=== PATIENT | female | born 1940 | race Caucasian/White ===

== ENCOUNTER → 2017-01-30 | Outpatient (CLI) | payer MEDICARE ==
--- NOTE | 2017-01-30 14:49 | CT ---
EXAMINATION TYPE: CT brain wo con DATE OF EXAM: 01/30/2017 2:39 PM COMPARISON: NONE HISTORY: Headaches CT DLP: 1096.[address] of the brain was performed. The ventricles, basal cisterns and sulci overlying the cerebral convexities demonstrate mild enlargem ent. There is no evidence for intracranial hemorrhage or sulcal effacement. There is decreased attenuation about the periventricular white matter and deep white matter of both c erebral hemispheres, compatible with chronic small vessel ischemia. Differential diagnosis does inclu de demyelination. No mass effects are seen.No midline shift. Osseous calvarium is intact. If symptoms persist consider MRI. IMPRESSION: 1. Age related atrophic and chronic small vessel ischemic change without acute intracranial process s een at this time.
--- NOTE | 2017-01-30 15:03 | CT ---
EXAMINATION TYPE: CT sinus wo con DATE OF EXAM: 01/30/2017 2:40 PM COMPARISON: NONE HISTORY: Sinusiitis CT DLP: 556.[address] of the paranasal sinuses was performed in the axial and coronal planes. Bone and soft tissue settings are submitted. The paranasal sinuses demonstrate normal aeration and development. The paranasal sinuses are free of mucosal thickening or air fluid level. The osteal meatal units are patent bilaterally. There is mild nasal septal deviation from left to right. No bony destructive changes are seen within the field of view. IMPRESSION: Mild nasal septal deviation from left to right.
== END | disposition home or self-care (01) ==
LOC: RADCTMAIN 14:05
PROVIDERS: ATTEND Family Medicine
DX: G31.1 Senile degeneration of brain, not elsewhere classified (principal); I67.82 Cerebral ischemia; J34.2 Deviated nasal septum
CPT/HCPCS: 70450; 70486

== ENCOUNTER → 2017-05-17 | Outpatient (CLI) | payer MEDICARE ==
--- NOTE | 2017-05-17 16:53 | US ---
EXAMINATION TYPE: US carotid duplex BILAT DATE OF EXAM: 05/17/2017 COMPARISON: NONE CLINICAL HISTORY: R55 NEAR SYNCOPE. Pt states occasional dizziness and lightheaded EXAM MEASUREMENTS: RIGHT: Peak Systolic Velocity (PSV) cm/sec ----- Right CCA: 63.3 ----- Right ICA: 106.6 ----- Right ECA: 105.6 ICA/CCA ratio: 1.7 RIGHT: End Diastole cm/sec ----- Right CCA: 19.7 ----- Right ICA: 31.2 ----- Right ECA: 15.0 LEFT: Peak Systolic Velocity (PSV) cm/sec ----- Left CCA: 73.8 ----- Left ICA: 105.6 ----- Left ECA: 108.2 ICA/CCA ratio: 1.4 LEFT: End Diastole cm/sec ----- Left CCA: 20.6 ----- Left ICA: 39.6 ----- Left ECA: 15.0 VERTEBRALS (direction of flow): Right Vertebral: Antegrade Left Vertebral: Antegrade No significant stenosis seen, left ICA tortuous Incidental finding left thyroid= 1.6 cm IMPRESSION: No hemodynamic significant stenosis of the proximal internal carotid arteries bilaterall y by Doppler criteria, an indirect measurement of carotid stenosis
== END | disposition home or self-care (01) ==
LOC: RADUSWWP 15:38
PROVIDERS: ATTEND Family Medicine
DX: R55 Syncope and collapse (principal)
CPT/HCPCS: 93880

== ENCOUNTER → 2017-06-05 | Outpatient (CLI) | payer MEDICARE ==
--- NOTE | 2017-06-05 14:58 | MR ---
EXAMINATION TYPE: MR shoulder RT wo con DATE OF EXAM: 06/05/2017 COMPARISON: NONE HISTORY: 76-year-old female with right shoulder pain x 4 months TECHNIQUE: Multiplanar, multisequence imaging of the right shoulder shoulder is performed without con trast. FINDINGS: Intracapsular portion of the long head biceps tendon appears diminutive and is likely partially torn. There is heterogeneous signal of the subscapularis tendon with bony irregularity of the lesser tubero sity. Small partial tears are suggested. The majority of the subscapularis tendon remains intact. Postsurgical changes about the greater tuberosity and rotator cuff with a re-tear of the supraspinatu s tendon. Some posterior spinous tendon fibers remain intact. There is retraction by up to 4.1 cm to the level of the glenohumeral joint and secondary loss of the subacromial space with superior subluxa tion of the humeral head. There is only mild fatty streaking within the supraspinatus and infraspinatus muscle bellies. There is small amount of fluid within the subacromial/subdeltoid bursa and interposed tendon gap comm unicating with the glenohumeral joint. Evaluation of the glenohumeral joint shows mild cartilage irregularity along the humeral head articul ar surface. The glenoid labrum is blunted and degenerative. There is a large ganglion cyst versus rounded bursal distention measuring 3.3 x 2.4 cm in the region of the subcoracoid bursa. Moderate degenerative joint space narrowing and marginal spurring and capsular hypertrophy at the acr omioclavicular joint. Mild patchy red marrow hyperplasia is present. No suspicious bone marrow replacement. No Hill-Sachs deformity or os acromiale. IMPRESSION: 1. Prior rotator cuff repair with supraspinatus tendon retear. The stump is retracted to the level of the glenohumeral joint. Some of the posterior infraspinatus tendon fibers remain intact. 2. Only mild fatty infiltration of both the supraspinatus and infraspinatus muscle bellies. 3. Large 3.3 cm ganglion cyst or rounded bursal distention at the subcoracoid bursa, anterior to the subscapularis muscle belly. 4. Suspect a partial tear of the intracapsular long head biceps tendon. 5. Mild degenerative changes at the glenohumeral joint. Degenerative and blunted glenoid labrum. Mode rate AC joint OA.
== END | disposition home or self-care (01) ==
LOC: RADMRIMAIN 11:43
PROVIDERS: ATTEND Family Medicine
DX: S46.911A Strain of unspecified muscle, fascia and tendon at shoulder and upper arm level, right arm, initial encounter (principal)

== ENCOUNTER → 2018-06-08 | Outpatient (CLI) | payer MEDICARE ==
--- NOTE | 2018-06-08 16:11 | US ---
EXAMINATION TYPE: US kidneys/renal and bladder DATE OF EXAM: 06/08/2018 COMPARISON: CT abdomen pelvis the 01/11/[address] available. No prior abdomen ultrasound CLINICAL HISTORY: RENAL MASS N28.89. EXAM MEASUREMENTS: Right Kidney: 9.7 x 4.1 x 4.0 cm Left Kidney: 10.3 x 3.9 x3.9 cm Right Kidney: hyperechoic structure measuring 0.6 x 0.8 x0.9cm at the cortical medullary junction mi d to inferior pole. Left Kidney: hyperechoic structure measuring 0.9 x 0.8 x 1.0cm at the mid cortex left kidney. This p otentially could be a lipoma given the finding in 2009. Size is somewhat larger currently and additio nal workup remains recommended. Bladder: Not fully distended, patient felt like her bladder was very full IMPRESSION: 1. Echogenic foci within the mid and inferior poles bilateral kidneys. Additional workup with contras t CT abdomen is recommended.
--- NOTE | 2018-06-10 15:19 | CT ---
EXAMINATION TYPE: CT chest w con DATE OF EXAM: 06/08/2018 COMPARISON: 05/06/2016 HISTORY: Lung nodules CT DLP: 689 mGycm, Automated exposure control for dose reduction was used. CONTRAST: Performed injected with 80 mL of Isovue 300. TECHNIQUE: Axial images were obtained at 5 mm thick sections. Reconstructed images are reviewed on [employer] computer in the coronal plane. FINDINGS: There is some hypodensity within the inferior lateral left lobe thyroid. Additional evaluat ion with ultrasound is recommended. There is a focal area of pneumonitis at the posterior lateral left lung base. Series 3 image 41. This is more focal than the previous exam. Small linear opacity in the periphery of the right upper lung field appears smaller than the compari son study. Series 3 image 16 No enlarged mediastinal or hilar adenopathy is evident. The ascending aorta diameter at the level o f the main pulmonary artery is 3.1 cm. The main pulmonary artery diameter at the bifurcation is 2.7 cm. Some coronary artery calcification is not excluded. There is a small hiatal hernia present. Posts urgical changes are evident within the stomach. Limited CT sections are obtained through the upper abdomen. IMPRESSIONS: 1. Focal pneumonitis posterior left lung base. 2. Linear opacity anterior lateral right upper lung field appear smaller than comparison.
== END | disposition home or self-care (01) ==
LOC: RADCTMAIN 14:28
PROVIDERS: ATTEND Family Medicine
DX: N28.89 Other specified disorders of kidney and ureter (principal); J18.9 Pneumonia, unspecified organism; J98.4 Other disorders of lung
CPT/HCPCS: 82565; 84520; 76770; 71260; Q9967

== ENCOUNTER → 2018-06-22 | Outpatient (CLI) | payer MEDICARE ==
--- NOTE | 2018-06-22 16:01 | US ---
EXAMINATION TYPE: US thyroid st tissue head/neck DATE OF EXAM: 06/22/2018 COMPARISON: CT chest June 08, 2018 CLINICAL HISTORY: R22.0 Localized swelling, mass and lump, head. GLAND SIZE: Right Lobe: 3.5 x 1.3 x 1.6 cm Overall Parenchyma: homogenous Left Lobe: 4.0 x 1.6 x 1.8 cm Overall Parenchyma: homogeneous Isthmus Thickness: 0.8 cm NODULES RIGHT: # of nodules measured on right: 2 1. 0.5 X 0.4 x 0.2 cm hypoechoic solid nodule at the upper pole with well-defined margins. This no dule is taller than wide and shows no intranodular vascularity. Prior size: No prior 2. 0.3 X 0.3 x 0.3 cm echogenic nodule at the mid pole with well-defined margins. This nodule is t aller than wide and shows no intranodular vascularity. Prior size: No prior LEFT: # of nodules measured on left: 1 1. 1.6 X 1.4 x 1.4 cm solid nodule at the lower pole with well-defined margins; interrupted periphe ral calcification. This nodule is taller than wide and shows intranodular vascularity. Prior size: No prior ISTHMUS: # of nodules measured in the isthmus: 1 1. 0.4 X 0.3 x 0.3 cm cystic nodule at the Left lateral pole with well-defined margins. This no dule is taller than wide and shows no intranodular vascularity. Prior size: No prior Bilateral neck scanned, no evidence of lymphadenopathy. There is normal size thyroid with scattered small nodules, corresponding to recent CT there is isoech oic rim calcified 1.6 cm solid nodule in the lower pole. T I-RADS score of 8 ( solid, hyperechoic, color greater than wide, peripheral rim calcifications) TR 5 lesion IMPRESSION: Highly suspicious, Advise ultrasound guided fine-needle aspiration of this nodule.
== END | disposition home or self-care (01) ==
LOC: RADUSWWP 10:07
PROVIDERS: ATTEND Internal Medicine
DX: R22.0 Localized swelling, mass and lump, head (principal)
CPT/HCPCS: 76536

== ENCOUNTER 2018-07-06 11:11 | Day surgery (SDC) | payer MEDICARE ==
[2018-07-06] MEDS ORDERED: ALPRAZolam 0.25 MG TAB PO ONE (12:13)
[2018-07-06 12:33] VITALS: RESP 16; TEMP 98.2
[2018-07-06 14:00] VITALS: BP 152/64; PULSE 58
--- NOTE | 2018-07-06 16:14 | US ---
ULTRASOUND GUIDED FNA THYROID BIOPSY: CLINICAL HISTORY: Left thyroid nodule FINDINGS: The procedure was explained to the patient. The risks, complications, benefits and alternatives were discussed and any questions were answered. Informed consent was obtained. Patient was placed supin e on the ultrasound table and prepped and draped in the usual sterile fashion. Utilizing a 25 gauge needle, five passes were made into the left thyroid nodule. Patient was stable throughout the procedure. Pathology is pending. All elements of maximal barrier technique were utilized. IMPRESSION: 1. Successful ultrasound guided FNA thyroid biopsy.
== END 2018-07-06 14:17 | disposition home or self-care (01) ==
LOC: RADPROMAIN 11:11
PROVIDERS: ATTEND Internal Medicine
DX: E04.1 Nontoxic single thyroid nodule (principal)
CPT/HCPCS: 10022; 76942; 88173; 88305

== ENCOUNTER → 2019-04-18 | Outpatient (CLI) | payer MEDICARE ==
--- NOTE | 2019-04-18 17:10 | CONS ---
CONSULTATION DATE OF SERVICE: 04/18/2019 This patient is a 78-year-old lady who has been evaluated in the sleep center for possible obstructive sleep apnea-hypopnea syndrome. HISTORY OF PRESENT ILLNESS/SLEEP-WAKE EVALUATION: The patient usually goes to bed between 9 and 10 and gets up in the morning between 5 and 6. Sometimes she has difficulties with falling asleep, although no TV in bedroom. She sleeps on the side position. According to her , she snores and has episodes of stopped breathing during sleep. Patient wakes up from sleep about 3 times with nocturia. Also she has pain in her shoulder, and that might be a factor for bad quality of sleep. No history of hypnagogic hallucinations, sleep paralysis or cataplexy. In the morning the patient wakes up tired, falling asleep during the day, has episodes of irritability, depression, anxiety, claustrophobia. [place] Sleepiness Scale is 7. PAST MEDICAL HISTORY: Past medical history is positive for: 1. Hypertension. 2. Allergies. 3. Episodes of vertigo. 4. Right shoulder problems. PAST SURGICAL HISTORY: 1. Partial hysterectomy. 2. Bariatric surgery. MEDICATIONS: 1. Losartan. 2. Hydrochlorothiazide. 3. Lorazepam. 4. Loratadine. 5. Meclizine. 6. Lasix. 7. Tramadol. ALLERGIES: 1. PENICILLIN. 2. SULFA. 3. CELEBREX. 4. CIPRO. 5. DOXYCYCLINE. 6. AMOXICILLIN. SOCIAL HISTORY: Positive for smoking for about 35 pack/years; quit 29 years ago. Alcohol consumption none. FAMILY HISTORY: Hypertension, angina, heart problems, fibromyalgia, arthritis, sinus problems, emphysema, tuberculosis, pneumonia, headaches, cancer, diabetes, acid reflux. REVIEW OF SYSTEMS: Multiple awakenings from sleep. Sometimes tiredness and sleepiness during the day. PHYSICAL EXAMINATION: GENERAL: A pleasant lady without distress. VITAL SIGNS: BP 136/74, HR 74, RR 16, height 5 feet 2 inches, weight 195 pounds. Body mass index 35.6. Temperature 98.0, oxygen saturation at room air 96%. HEENT: PERRLA, EOMI. Evaluation of oropharynx showed tongue protrudes midline. Low position of soft palate. Mallampati IV. Slight restriction of nasal breathing. NECK: Supple. No JVD. Thyroid is not palpable. Neck measures 13-1/2 inches in circumference. LUNGS: Clear to percussion and to auscultation. Good air exchange. No wheezing or rhonchi. HEART: S1, S2 regular. No murmurs, gallops or rubs. ABDOMEN: Several scars on abdomen. EXTREMITIES: No clubbing or cyanosis. REFRIGERATION ENGINEER: Awake, alert, and oriented X3. Cranial nerves 2 to 7 intact. There is no fasciculation or atrophy. noted. No focal deficits observed. IMPRESSION: 1. Snoring, witnessed episodes of stopped breathing during sleep, extremely low position of soft palate, awakenings from sleep; obstructive sleep apnea-hypopnea syndrome. 2. Hypertension. 3. History of vertigo. 4. Allergies. 5. Right shoulder problems. 6. Status post partial hysterectomy. 7. Status post bariatric surgery. PLAN: 1. Polysomnography for evaluation of patient's breathing during sleep. 2. CPAP/BiPAP titration if sleep study confirms obstructive sleep apnea-hypopnea syndrome. 3. Preferable position during sleep on the side. 4. No driving if patient feels any sleepiness. 5. I will see patient for follow up visit to explain results of testing and following plan. Thank you very much for referring this patient for consultation. Sincerely, Gabriel Montalvo MD, PhD, FAASM Diplomat of [employer] [employer] [place] [employer] Oral Health Therapist of [facility] [place] SUZANNE / IRMA: [id number] /
== END ==
LOC: SLEEP 14:11
PROVIDERS: ATTEND Internal Medicine
DX: G47.33 Obstructive sleep apnea (adult) (pediatric) (principal); I10 Essential (primary) hypertension; R29.898 Other symptoms and signs involving the musculoskeletal system; Z88.9 Allergy status to unspecified drugs, medicaments and biological substances; Z90.710 Acquired absence of both cervix and uterus; Z98.84 Bariatric surgery status; Z86.69 Personal history of other diseases of the nervous system and sense organs; Z88.0 Allergy status to penicillin; Z88.2 Allergy status to sulfonamides; Z88.1 Allergy status to other antibiotic agents; Z88.6 Allergy status to analgesic agent; Z79.899 Other long term (current) drug therapy
CPT/HCPCS: 99211

== ENCOUNTER → 2019-07-01 | Outpatient (CLI) | payer MEDICARE | END | disposition home or self-care (01) | LOC: RADCTMAIN 12:19 | PROVIDERS: ATTEND Urology | DX: D41.01 Neoplasm of uncertain behavior of right kidney (principal) | CPT/HCPCS: 82565; 84520 ==

== ENCOUNTER → 2019-07-16 | Outpatient (CLI) | payer MEDICARE ==
--- NOTE | 2019-07-16 16:11 | US ---
EXAMINATION TYPE: US kidneys/renal and bladder DATE OF EXAM: 07/16/2019 COMPARISON: CT 07/01/2014, US 06/08/2018 CLINICAL HISTORY: D41.01 Renal Mass. EXAM MEASUREMENTS: Right Kidney: 10.0 x 4.3 x 5.2 cm Left Kidney: 9.4 x 3.8 x 3.9 cm Patient of large body habitus, technically difficult study. Right Kidney: There is fullness of the renal pelvis without hydronephrosis. Complex inferior pole cys tic mass measures 1.4 x 1.1 x 1.6cm. This was not seen on the prior examination. There is redemonstra tion of an echogenic lesion seen previously measuring 0.6 x 0.8 x 0.9cm. This is unchanged previously measured 0.6 x 0.8 x 0.9 cm on the exam of 06/08/2018. Left Kidney: echogenic mass seen previously measuring 0.7 x 0.6 x 0.8cm. This previously measured 0. 9 x 0.8 x 1.0 cm on the prior exam of 06/08/2018 and now appears smaller. Bladder: wnl as seen, not fully distended Both of the hyperechoic masses likely represent angiomyolipomas. New complex right renal lesion howev er requires further evaluation with CT. There is no evidence for hydronephrosis at this point in time . No nephrolithiasis is seen. No masses are identified. The urinary bladder is anechoic. IMPRESSION: 1. New complex cystic mass of the inferior pole the right kidney for which three-phase enhanced CT is recommended for further characterization. 2. Stable right and smaller left paracolic renal lesions are most compatible with benign angiomyolipo mas.
== END | disposition home or self-care (01) ==
LOC: RADUSWWP 15:22
PROVIDERS: ATTEND Urology
DX: N28.89 Other specified disorders of kidney and ureter (principal)
CPT/HCPCS: 76770

== ENCOUNTER → 2019-08-01 | Outpatient (CLI) | payer MEDICARE ==
--- NOTE | 2019-08-01 16:01 | CT ---
EXAMINATION TYPE: CT abdomen pelvis w con DATE OF EXAM: 08/01/2019 COMPARISON: 07/01/2014 CT, 07/16/2019 ultrasound INDICATION: follow up study, known renal mass DLP: 1456 mGycm, Automated exposure control for dose reduction was used. CONTRAST: 80 mL of Isovue 300. Study performed with Oral Contrast TECHNIQUE: Axial images were obtained from above the diaphragm to the pubic rami in the axial plane a t 5 mm thick sections. Reconstructed images are reviewed on the computer in the coronal plane. FINDINGS: Limited CT sections are obtained the lung bases. The lung bases are clear. CT ABDOMEN: Surgical changes are at the gastroesophageal junction. Hiatal hernia is present. Suture l ine appears to lie along the lesser curvature of the stomach. Liver: Normal Spleen: Normal Pancreas: Normal Adrenal glands: The adrenal glands are normal. Gallbladder: Surgically absent. Kidneys: No masses are evident. No hydronephrosis is present. Is a 2.0 cm hypodense area measuring 42 Hounsfield units at the inferior-anterior pole right kidney. Delayed images were obtained to the kidneys. Aorta: Vascular calcification is within the aorta. Inferior vena cava: Normal. CT PELVIS: Loops of bowel within the abdomen and pelvis are normal. There are loops of bowel which are incom pletely distended or lack oral contrast limiting their evaluation. Appendix: Normal as visualized. Urinary bladder: Normal. Genitourinary structures: Uterus is not identified. Adnexal regions appear normal. Osseous structures: No suspicious lytic or sclerotic lesions. IMPRESSIONS: 1. 2 cm hypodense mass at the inferior anterior pole right kidney. Monitoring with ultrasound is rec ommended.
== END | disposition home or self-care (01) ==
LOC: RADCTMAIN 12:49
PROVIDERS: ATTEND Urology
DX: N28.89 Other specified disorders of kidney and ureter (principal); Z88.0 Allergy status to penicillin; Z88.1 Allergy status to other antibiotic agents; Z88.6 Allergy status to analgesic agent; Z88.8 Allergy status to other drugs, medicaments and biological substances; Z88.2 Allergy status to sulfonamides
CPT/HCPCS: 82565; 84520; 74177; 36415; Q9967

== ENCOUNTER 2019-10-08 06:50 | Day surgery (SDC) | payer MEDICARE ==
[2019-10-02 10:21] VITALS: BMI 33.6
[~2019-10-08 06:50] MED LIST: LACTATED RINGERS 1,000 ML IV SCH
[2019-10-08 07:31] VITALS: TEMP 98.7
[2019-10-08 07:31] LABS: Glucose,Whole Blood 90 mg/dL (75-99)
[2019-10-08] MEDS ORDERED: LIDOCAINE 1% INJ 10MG/ML (20 ML MDV) ONE (07:48)
[2019-10-08] MEDS ORDERED: PROPOFOL 10 MG/ML 20 ML VIAL IV ONE (07:48)
--- NOTE | 2019-10-08 07:52 | P.GSHP ---
History of Present Illness H&P Date: 10/08/19 Chief Complaint: GI bleed This a 79-year-old female who is occult blood positive. Patient is today for colonoscopy. Her last colonoscopy approximately 9 years ago. Past Medical History Past Medical History: Diabetes Mellitus, Hypertension Additional Past Medical History / Comment(s): Seasonal ALLERGIES with known ALLERGY to dogs and cats. POLYMYALGIA History of Any Multi-Drug Resistant Organisms: None Reported Past Surgical History: Adenoidectomy, Bariatric Surgery, Cholecystectomy, Hernia Repair, Hysterectomy, Tonsillectomy Additional Past Surgical History / Comment(s): Partial hysterectomy, bilateral cataract removal and intraocular lens implants. COLONOSCOPY, EGD Past Anesthesia/Blood Transfusion Reactions: No Reported Reaction Smoking Status: Former smoker - Past Family History Mother Family Medical History: Coronary Artery Disease (CAD), Diabetes Mellitus, Hypertension, Myocardial Infarction (NH) Additional Family Medical History / Comment(s): Mother at age 69 from myocardial infarction. Father Additional Family Medical History / Comment(s): Father at age 77 from myocardial infarction. He had a previous history of peripheral vascular disease status post multiple lower extremity amputations. Brother(s) Additional Family Medical History / Comment(s): Patient has 3 half-brothers. One shot himself at approximately age 80. 2 from myocardial infarctions in their 80s. Patient has 2 full brothers and both from lung cancer and brain cancer. Son(s) Additional Family Medical History / Comment(s): Patient has 5 children. One from a motor vehicle accident. One son has hypertension at age 48. One son suffers from gastroesophageal reflux disease. One daughter is healthy at age 57 and one daughter healthy at age 53. Sister(s) Additional Family Medical History / Comment(s): Patient had 2 half sisters one from myocardial infarction and one in a motor vehicle accident. Medications and Allergies Home Medications Medication Instructions Recorded Confirmed Type LORazepam [Ativan] 1 mg PO HS 03/15/14 10/08/19 History traMADol HCL [Ultram] 50 - 100 mg PO HS PRN 05/06/16 10/08/19 History Valsartan/Hydrochlorothiazide 1 each PO DAILY 10/02/19 10/08/19 History [Valsartan-Hctz 320-12.5 mg Tab] metFORMIN HCL [Glucophage] 500 mg PO BID 10/02/19 10/08/19 History predniSONE 5 mg PO BID 10/02/19 10/08/19 History Allergies Allergy/AdvReac Type Severity Reaction Status Date / Time celecoxib [From Celebrex] Allergy Itching Verified 10/08/19 07:16 ciprofloxacin [From Cipro] Allergy Itching Verified 10/08/19 07:16 ciprofloxacin HCl Allergy Itching Verified 10/08/19 07:16 [From Cipro] Penicillins Allergy Itching Verified 10/08/19 07:16 Sulfa (Sulfonamide Allergy Itching Verified 10/08/19 07:16 Antibiotics) Surgical - Exam Vital Signs Temp Pulse Resp BP Pulse Ox 98.7 F 68 17 155/71 90 L 10/08/19 07:19 10/08/19 07:19 10/08/19 07:19 10/08/19 07:19 10/08/19 07:19 - General well developed, well nourished, no distress - Eyes PERRL, normal ocular movement - ENT normal pinna - Neck no masses - Respiratory normal expansion - Cardiovascular Rhythm: regular - Abdomen Abdomen: soft, non tender Assessment and Plan Assessment: History of GI bleed. We'll perform colonoscopy.
--- NOTE | 2019-10-08 08:12 | P.OP ---
Date of Procedure: 10/08/19 Preoperative Diagnosis: GI bleed Postoperative Diagnosis: Diverticulosis Procedure(s) Performed: Colonoscopy Anesthesia: MAC Surgeon: Robbie Ocampo Pathology: none sent Condition: stable Disposition: PACU Description of Procedure: The patient's placed on the endoscopy table in the lateral position. She received IV sedation. Digital rectal exam was performed which revealed no abnormalities. The proximal colonoscope was then placed patient anus passed throughout the entire colon. The ileocecal valve was visualized. The cecum, ascending and transverse colon appeared normal. In the descending colon and sigmoid colon was a few scattered diverticula. Scope was then brought back the rectum this appeared normal. Scope was withdrawn for patient.
[2019-10-08 08:16] VITALS: RESP 16
[2019-10-08 08:36] VITALS: BP 126/74; PULSE 64
== END 2019-10-08 08:38 | disposition home or self-care (01) ==
LOC: ORWHC2ENDO 06:50
PROVIDERS: ATTEND Surgery
DX: K57.30 Diverticulosis of large intestine without perforation or abscess without bleeding (principal); I10 Essential (primary) hypertension; E11.9 Type 2 diabetes mellitus without complications; J30.2 Other seasonal allergic rhinitis; J30.81 Allergic rhinitis due to animal (cat) (dog) hair and dander; M35.3 Polymyalgia rheumatica; Z90.710 Acquired absence of both cervix and uterus; Z98.890 Other specified postprocedural states; Z87.891 Personal history of nicotine dependence; Z79.899 Other long term (current) drug therapy; Z88.0 Allergy status to penicillin; Z88.1 Allergy status to other antibiotic agents; Z88.2 Allergy status to sulfonamides; Z91.048 Other nonmedicinal substance allergy status; Z82.49 Family history of ischemic heart disease and other diseases of the circulatory system; Z80.1 Family history of malignant neoplasm of trachea, bronchus and lung; Z80.8 Family history of malignant neoplasm of other organs or systems; Z79.84 Long term (current) use of oral hypoglycemic drugs; Z88.6 Allergy status to analgesic agent; Z83.3 Family history of diabetes mellitus
CPT/HCPCS: 45378

== ENCOUNTER → 2020-07-20 | Outpatient (CLI) | payer MEDICARE ==
--- NOTE | 2020-07-20 15:45 | US ---
EXAMINATION TYPE: US kidneys/renal and bladder DATE OF EXAM: 07/20/2020 COMPARISON: US July 16, 2019. CT abdomen and pelvis August 01, [address] studies. CLINICAL HISTORY: N18.3 CKD STAGE 3. Abnormal lab values. EXAM MEASUREMENTS: Right Kidney: 11.1 x 4.7 x 5.2 cm Left Kidney: 10.4 x 4.5 x 4.4 cm Right Kidney: Lower pole mixed lesion measures 1.9 x 1.9 x 1.8 cm Left Kidney: lateral echogenic lesion measures 1.0 x 1.0 x 1.0 cm, and a cystic area measures 1.0 x 1 .1 x 1.2 cm. Bladder: wnl Bilateral Jets seen: Yes Increased cortical echogenicity right kidney. There is exophytic 1.9 cm hypoechoic to anechoic lesion with internal septations and increased through transmission felt to reflect small hemorrhagic cyst. Increased cortical echogenicity with cortical thinning left kidney. Technologist rodriguez 1.0 cm round h yperechoic focus. There is additional 1.0 cm thin-walled cyst upper to mid pole level marked by techn ologist. IMPRESSION: Nonsimple exophytic lesion lower pole of the right kidney favors hemorrhagic or proteinac eous cyst. Slight increase in size from ultrasound one year earlier. Reassessment or follow-up in 1 y ear time is advised.
== END | disposition home or self-care (01) ==
LOC: RADUSWWP 13:26
PROVIDERS: ATTEND Internal Medicine
DX: N28.1 Cyst of kidney, acquired (principal); N18.3 Chronic kidney disease, stage 3 (moderate)
CPT/HCPCS: 76770

== ENCOUNTER → 2020-08-18 | Outpatient (CLI) | payer MEDICARE ==
--- NOTE | 2020-08-19 11:35 | MM ---
Reason for exam: screening (asymptomatic). Last mammogram was performed 1 year and 10 months ago. Physical Findings: A clinical breast exam by your physician is recommended on an annual basis and results should be correlated with mammographic findings. MG 3D Screening Mammo W/Cad Bilateral CC and MLO view(s) were taken. Prior study comparison[place] [facility] [place]. The breast tissue is heterogeneously dense. This may lower the sensitivity of mammography. There is no discrete abnormality. No significant changes when compared with prior studies. ASSESSMENT: Negative, BI-RAD 1 RECOMMENDATION: Routine screening mammogram of both breasts in 1 year.
== END | disposition home or self-care (01) ==
LOC: RADMAMWWP 10:01
PROVIDERS: ATTEND Family Medicine
DX: Z12.31 Encounter for screening mammogram for malignant neoplasm of breast (principal)
CPT/HCPCS: 77063; 77067

== ENCOUNTER → 2021-08-03 | Outpatient (CLI) | payer MEDICARE ==
--- NOTE | 2021-08-03 16:23 | US ---
EXAMINATION TYPE: US venous doppler duplex LE DATE OF EXAM: 08/03/2021 4:13 PM COMPARISON: NONE CLINICAL HISTORY: R60.0 edema. Leg swelling SIDE PERFORMED: Bilateral TECHNIQUE: The lower extremity deep venous system is examined utilizing real time linear array sonog abmrocio with graded compression, doppler sonography and color-flow sonography. VESSELS IMAGED: Common Femoral Vein Deep Femoral Vein Greater Saphenous Vein * Femoral Vein Popliteal Vein Small Saphenous Vein * Proximal Calf Veins (* superficial vessels) Right Leg: Negative for DVT Left Leg: Negative for DVT, Probable Back's CYst= 5.8 x 1.2 x 3.4 cm Attempted to call Dr Matt with results, no answer IMPRESSION: No evidence for DVT at this time.
== END | disposition home or self-care (01) ==
LOC: RADUSWWP 15:37
PROVIDERS: ATTEND Internal Medicine
DX: R60.0 Localized edema (principal)
CPT/HCPCS: 93970

== ENCOUNTER → 2022-01-18 | Outpatient (CLI) | payer MEDICARE ==
--- NOTE | 2022-01-18 16:19 | US ---
EXAMINATION TYPE: US kidneys/renal and bladder DATE OF EXAM: 01/18/2022 COMPARISON: 07/20/2020 CLINICAL HISTORY: 81-year-old female N28.1 CYST OF KIDNEY, ACQUIRED. TECHNIQUE: Multiple sonographic images of the kidneys and bladder are obtained. FINDINGS: EXAM MEASUREMENTS: Right Kidney: 9.6 x 5.0 x 4.8 cm Left Kidney: 10.3 x 4.4 x 4.2 cm Right Kidney: Cortical thinning. A couple cortical cysts are present. Lower pole complex cyst = 2.0 x 1.8 x 2.0 cm. (Versus 2.0 x 1.9 x 1.8 cm, previously). It shows a thickened internal septation Mid lateral cortical cyst measures 1.3 x 1.0 x 0.8 cm. No hydronephrosis. Left Kidney: Cortical thinning. Multiple cysts seen. Central parapelvic cyst measuring 1.4 x 1.2 x 1. 1 cm. Tiny lower pole cortical cyst measures 1.0 x 1.0 x 0.7 cm some low level internal echoes are fe lt to be artifactual. No hydronephrosis. Bladder: Under distention limits its evaluation. Bilateral Jets not seen IMPRESSION: 1. Suspect underlying chronic medical renal disease. No hydronephrosis on either side. 2. A couple cysts within either kidney. The dominant cyst is on the right measuring 2.0 cm at the low er pole and shows mild complexity with a thickened internal septation, unchanged compared to 0. Continued ultrasound surveillance can be performed.
== END | disposition home or self-care (01) ==
LOC: RADUSWWP 12:53
PROVIDERS: ATTEND Urology
DX: N28.1 Cyst of kidney, acquired (principal)
CPT/HCPCS: 76770

== ENCOUNTER 2022-04-04 13:25 | Emergency (ER) | payer MEDICARE ==
[2022-04-04 14:48] LABS: Basophils # (A) 0.1 k/uL (0-0.2); Basophils % (A) 1 %; Eosinophils # (A) 0.3 k/uL (0-0.7); Eosinophils % (A) 3 %; HGB 10.2 gm/dL (11.4-16.0); Hypochromasia Slight; Lymphocytes # (A) 2.4 k/uL (1.0-4.8); Lymphocytes % (A) 24 %; MCHC 30.9 g/dL (31.0-37.0); MCV 83.9 fL (80.0-100.0); Mean Platelet Volume 10.2; Monocytes # (A) 0.6 k/uL (0-1.0); Monocytes % (A) 6 %; Neutrophils # (A) 6.3 k/uL (1.3-7.7); Neutrophils % (A) 64 %; Platelet Count 250 k/uL (150-450); RBC 3.93 m/uL (3.80-5.40); RDW 14.8 % (11.5-15.5); WBC 9.8 k/uL (3.8-10.6)
[2022-04-04] MEDS ORDERED: KETOROLAC 15 MG/ML 1 ML VIAL IVP STA (14:49)
--- NOTE | 2022-04-04 14:57 | XR ---
EXAMINATION TYPE: XR chest 2V DATE OF EXAM: 04/04/2022 COMPARISON: Chest radiograph 11/16/2018 HISTORY: Chest pain radiating to the left neck TECHNIQUE: Frontal and lateral views of the chest are obtained. FINDINGS: There is no focal air space opacity, pleural effusion, or pneumothorax seen. The cardiac silhouette size is within normal limits. Atherosclerotic vascular calcifications of the aortic arch a re seen. Moderate multilevel degenerative changes of the thoracic spine. IMPRESSION: No acute cardiopulmonary process.
[2022-04-04 14:58] LABS: Albumin 3.4 g/dL (3.5-5.0); Calcium 8.6 mg/dL (8.4-10.2); Magnesium 2.6 mg/dL (1.6-2.3); Potassium 3.8 mmol/L (3.5-5.1); Total Bilirubin 0.4 mg/dL (0.2-1.3); Total Protein 5.6 g/dL (6.3-8.2)
[2022-04-04 15:05] LABS: INR 0.9 (<1.2); Prothrombin Time 10.4 sec (9.0-12.0)
[2022-04-04 15:08] LABS: Partial Thromboplastin Time 20.9 sec (22.0-30.0)
--- NOTE | 2022-04-04 15:46 | ED ---
General Adult HPI - General Chief complaint: Chest Pain Stated complaint: Chest pain Time Seen by Provider: 04/04/22 13:45 Source: patient, RN notes reviewed, old records reviewed Mode of arrival: wheelchair Limitations: no limitations - History of Present Illness Initial comments: Patient is an 81-year-old female with past medical history remarkable for diabetes, hypertension who presents emergency Department complaining of some mild lightheadedness this morning as well as appears to be chest wall pain. States it is palpable, and radiates from near her breast bone along the rib on the left side towards her armpit along the same rib space. States it was acute in onset. Proved with [id number] analgesic medications, aspirin. Denies any shortness of breath, abdominal pain, nausea, vomiting. Denies any cough, fevers, chills. No other associated complaints at this time. Became concerned and wanted to be evaluated. States that she first noticed it this morning at approximately 10 AM. It is improving at this time. His no known cardiac history. 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 Has had prior stress test as well as echo set were within normal limits. - Related Data Home Medications Medication Instructions Recorded Confirmed LORazepam [Ativan] 1 mg PO HS 03/15/14 10/08/19 traMADol HCL [Ultram] 50 - 100 mg PO HS PRN 05/06/16 10/08/19 Valsartan/Hydrochlorothiazide 1 each PO DAILY 10/02/19 10/08/19 [Valsartan-Hctz 320-12.5 mg Tab] metFORMIN HCL [Glucophage] 500 mg PO BID 10/02/19 10/08/19 predniSONE 5 mg PO BID 10/02/19 10/08/19 Allergies Allergy/AdvReac Type Severity Reaction Status Date / Time celecoxib [From Celebrex] Allergy Itching Verified 04/04/22 13:40 ciprofloxacin [From Cipro] Allergy Itching Verified 04/04/22 13:40 ciprofloxacin HCl Allergy Itching Verified 04/04/22 13:40 [From Cipro] Penicillins Allergy Itching Verified 04/04/22 13:40 Sulfa (Sulfonamide Allergy Itching Verified 04/04/22 13:40 Antibiotics) Review of Systems ROS Statement: Those systems with pertinent positive or pertinent negative responses have been documented in the HPI. Review of Systems: CONST: Denies fever EYES: Denies blurry vision ENT: Denies nasal congestion C/V: Endorses left-sided chest wall pain. RESP: Denies shortness of breath GI: Denies abdominal pain : Denies dysuria SKIN: Denies rash. MSK: Denies joint pain. NEURO: Denies headache ROS Other: All systems not noted in ROS Statement are negative. Past Medical History Past Medical History: Diabetes Mellitus, Hypertension Additional Past Medical History / Comment(s): Seasonal ALLERGIES with known ALLERGY to dogs and cats. POLYMYALGIA History of Any Multi-Drug Resistant Organisms: None Reported Past Surgical History: Adenoidectomy, Bariatric Surgery, Cholecystectomy, Hernia Repair, Hysterectomy, Tonsillectomy Additional Past Surgical History / Comment(s): Partial hysterectomy, bilateral cataract removal and intraocular lens implants. COLONOSCOPY, EGD Past Anesthesia/Blood Transfusion Reactions: No Reported Reaction Past Psychological History: No Psychological Hx Reported Past Alcohol Use History: None Reported Past Drug Use History: None Reported - Past Family History Mother Family Medical History: Coronary Artery Disease (CAD), Diabetes Mellitus, Hypertension, Myocardial Infarction (SC) Additional Family Medical History / Comment(s): Mother at age 69 from myocardial infarction. Father Additional Family Medical History / Comment(s): Father at age 77 from myocardial infarction. He had a previous history of peripheral vascular disease status post multiple lower extremity amputations. Brother(s) Additional Family Medical History / Comment(s): Patient has 3 half-brothers. One shot himself at approximately age 80. 2 from myocardial infarctions in their 80s. Patient has 2 full brothers and both from lung cancer and brain cancer. Son(s) Additional Family Medical History / Comment(s): Patient has 5 children. One from a motor vehicle accident. One son has hypertension at age 48. One son suffers from gastroesophageal reflux disease. One daughter is healthy at age 57 and one daughter healthy at age 53. Sister(s) Additional Family Medical History / Comment(s): Patient had 2 half sisters one from myocardial infarction and one in a motor vehicle accident. General Exam - General Exam Comments Initial Comments: General: Appears in no acute distress. HEAD: Normal with no signs of head trauma. EYES: PERRLA, EOMI, conjunctiva normal, no discharge. ENT: Hearing grossly intact, normal oropharynx. RESPIRATORY: Clear breath sounds bilaterally. No wheezes, rales, or rhonchi. C/V: Regular rate and rhythm. S1 and S2 auscultated, no edema, peripheral pulses 2+ and intact throughout. Chest pain is reproducible on palpation. Seems to extend through the fourth or fifth intercostal space. Appears to be musculoskeletal in nature. ABD: Abd is soft, nontender, nondistended EXT: Normal range of motion, no obvious deformity SKIN: No rashes or lesions observed on exposed skin. NEURO: Alert and oriented 4. 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 Therefore we will obtain a cardiac workup. She was in agreement this plan. Already took aspirin earlier today, over 324 mg. She'll be given Toradol for chest wall pain. She was in agreement this plan. EKG showed no signs of acute ischemia. Chest x-ray showed no acute cardiopulmonary process. Laboratory studies were remarkable for an undetectable troponin greater than 3 hours after onset of pain, patient has a stable creatinine in the setting of CK D. The remainder of the labs are unremarkable. On reevaluation come patient is feeling improved. I did discuss with her her negative workup. Heart score is 3-4. I did discuss admission versus discharge home. The likelihood that this is chest wall pain is high, particularly since it is reproducible on movement as well as from palpation. She has a negative workup at this time 6 hours after the onset. She was in agreement discharge home with close follow-up with her PCP. Strict return precautions were discussed. I instructed the patient to follow up with their PCP in the next 3 days. I explained that the patient should return to the emergency department if they experience any worsening symptoms. Strict return precautions were discussed with the patient. The patient expressed understanding of these instructions. I answered all questions that the patient had. The patient was discharged home in good condition with their prescriptions and follow up information. - Lab Data Result diagrams: 04/04/22 14:42 04/04/22 14:42 Lab Results 04/04/22 04/04/22 04/04/22 Range/Units 14:42 14:42 14:42 WBC 9.8 (3.8-10.6) k/uL RBC 3.93 (3.80-5.40) m/uL Hgb 10.2 L (11.4-16.0) gm/dL Hct 33.0 L (34.0-46.0) % MCV 83.9 (80.0-100.0) fL MCH 26.0 (25.0-35.0) pg MCHC 30.9 L (31.0-37.0) g/dL RDW 14.8 (11.5-15.5) % Plt Count 250 (150-450) k/uL MPV 10.2 Neutrophils % 64 % Lymphocytes % 24 % Monocytes % 6 % Eosinophils % 3 % Basophils % 1 % Neutrophils # 6.3 (1.3-7.7) k/uL Lymphocytes # 2.4 (1.0-4.8) k/uL Monocytes # 0.6 (0-1.0) k/uL Eosinophils # 0.3 (0-0.7) k/uL Basophils # 0.1 (0-0.2) k/uL Hypochromasia Slight PT 10.4 (9.0-12.0) sec INR 0.9 (<1.2) APTT 20.9 L (22.0-30.0) sec Sodium 137 (137-145) mmol/L Potassium 3.8 (3.5-5.1) mmol/L Chloride 103 (98-107) mmol/L Carbon Dioxide 30 (22-30) mmol/L Anion Gap 4 mmol/L BUN 34 H (7-17) mg/dL Creatinine 1.23 H (0.52-1.04) mg/dL Est GFR (CKD-EPI)AfAm 48 (>60 ml/min/1.73 sqM) Est GFR (CKD-EPI)NonAf 41 (>60 ml/min/1.73 sqM) Glucose 111 H (74-99) mg/dL Calcium 8.6 (8.4-10.2) mg/dL Magnesium 2.6 H (1.6-2.3) mg/dL Total Bilirubin 0.4 (0.2-1.3) mg/dL AST 30 (14-36) U/L ALT 25 (4-34) U/L Alkaline Phosphatase 89 (38-126) U/L Troponin I (0.000-0.034) ng/mL Total Protein 5.6 L (6.3-8.2) g/dL Albumin 3.4 L (3.5-5.0) g/dL 04/04/22 Range/Units 14:42 WBC (3.8-10.6) k/uL RBC (3.80-5.40) m/uL Hgb (11.4-16.0) gm/dL Hct (34.0-46.0) % MCV (80.0-100.0) fL MCH (25.0-35.0) pg MCHC (31.0-37.0) g/dL RDW (11.5-15.5) % Plt Count (150-450) k/uL MPV Neutrophils % % Lymphocytes % % Monocytes % % Eosinophils % % Basophils % % Neutrophils # (1.3-7.7) k/uL Lymphocytes # (1.0-4.8) k/uL Monocytes # (0-1.0) k/uL Eosinophils # (0-0.7) k/uL Basophils # (0-0.2) k/uL Hypochromasia PT (9.0-12.0) sec INR (<1.2) APTT (22.0-30.0) sec Sodium (137-145) mmol/L Potassium (3.5-5.1) mmol/L Chloride (98-107) mmol/L Carbon Dioxide (22-30) mmol/L Anion Gap mmol/L BUN (7-17) mg/dL Creatinine (0.52-1.04) mg/dL Est GFR (CKD-EPI)AfAm (>60 ml/min/1.73 sqM) Est GFR (CKD-EPI)NonAf (>60 ml/min/1.73 sqM) Glucose (74-99) mg/dL Calcium (8.4-10.2) mg/dL Magnesium (1.6-2.3) mg/dL Total Bilirubin (0.2-1.3) mg/dL AST (14-36) U/L ALT (4-34) U/L Alkaline Phosphatase (38-126) U/L Troponin I <0.012 (0.000-0.034) ng/mL Total Protein (6.3-8.2) g/dL Albumin (3.5-5.0) g/dL - EKG Data -: EKG Interpreted by Me EKG Comments: 12-lead Electrocardiogram Interpretation Note EKG was reviewed and interpreted by myself. 12-lead ECG performed at 1344 is interpreted by me as revealing normal sinus rhythm at a rate of 64 beats per m inute. Lander is normal. SD interval is 164 ms, QRS duration is 92 ms, QTc is 389 ms.. There were no ST or T wave abnormalities to suggest myocardial ischemia or injury. R wave progression across the precordium was satisfactory. By my interpretation this EKG is non-diagnostic for acute ischemia. Disposition Clinical Impression: Chest wall pain Disposition: HOME SELF-CARE Condition: Good Instructions (If sedation given, give patient instructions): Costochondritis ( ED) Is patient prescribed a controlled substance at d/c from ED?: No Referrals: Neela Garcia MD [Primary Care Provider] - 1-2 days Time of Disposition: 15:30
[2022-04-04 16:29] VITALS: BP 180/96; PULSE 69; RESP 20; TEMP 98.8
== END 2022-04-04 16:29 | disposition home or self-care (01) ==
LOC: EC 13:25
DX: R07.89 Other chest pain (principal); E11.9 Type 2 diabetes mellitus without complications; I10 Essential (primary) hypertension; Z82.49 Family history of ischemic heart disease and other diseases of the circulatory system; Z88.2 Allergy status to sulfonamides; Z88.0 Allergy status to penicillin; Z88.6 Allergy status to analgesic agent
CPT/HCPCS: 36415; 71046; 80053; 83735; 84484; 85025; 85610; 85730

== ENCOUNTER → 2023-02-21 | Outpatient (CLI) | payer MEDICARE ==
--- NOTE | 2023-02-21 21:40 | BD ---
EXAMINATION TYPE: Axial Bone Density DATE OF EXAM: 02/21/2023 CLINICAL HISTORY: 82 years old Female. ICD-10 CODE: Z13.820 SCREEN FOR OSTEOPOROSIS Height: 61.25 Weight: 191 FRAX RISK QUESTIONS: Family History (Parent hip fracture): no History of Fracture in Adulthood: no Secondary Osteoporosis: no Rheumatoid Arthritis: no Current Tobacco Use: no RISK FACTORS HISTORY OF: Family History of Osteoporosis: no Active: yes Diet low in dairy products/other sources of calcium: yes Postmenopausal woman: yes age 50 Lost more than 2 inches in height since high school: yes was 64 Frequent falls: no Poor Health: no MEDICATIONS: Additional Medications: yes [facility] EXAM MEASUREMENTS: Bone mineral densitometry was performed using the [employer] System. Bone mineral density as measured about the Lumbar spine is: ----- L1-L4(G/cm2): 1.139 T Score Values are as follows: ----- L1: -1.7 ----- L2: -0.9 ----- L3: 0.4 ----- L4: 0.4 ----- L1-L4: -0.3 Z Score Values are as follows: ----- L1: -0.5 ----- L2: 0.2 ----- L3: 1.5 ----- L4: 1.6 ----- L1-L4: 0.8 Bone mineral density baseline Bone mineral density about the R hip (g/cm2): 0.696 Bone mineral density about the L hip (g/cm2): 0.674 T Score values are as follows: -----R Neck: -2.1 -----L Neck: -2.4 -----R Total: -2.5 -----L Total: -2.7 Z Score values are as follows: -----R Neck: -0.3 -----L Neck: -0.6 -----R Total: -0.8 -----L Total: -1.0 Bone mineral density baseline FRAX%s: The graph provided illustrates a 17.1% chance for a major osteoporotic fx and a 5.8% chance f or the hips probability for fx in 10 years time. IMPRESSION: Osteoporosis (T Score less than -2.5). There is increased fracture risk and therapy is usually indicated based on age. Re-Screen 1-2 years. NOTE: T-SCORE=SD OF THE YOUNG ADULT MEAN.
--- NOTE | 2023-02-22 15:34 | MM ---
Reason for Exam: Screening (asymptomatic). Last mammogram was performed 2 year(s) and 6 month(s) ago. Patient History: Menarche at age 14. First Full-Term at age 19. Hysterectomy at age 30. Postmenopausal. Risk Values: Judith 5 year model risk: 1.0%. NCI Lifetime model risk: 1.4%. Prior Study Comparison: 08/31/2017 Screening Mammogram, [facility]. 10/22/2018 Screening Mammogram, [facility]. 08/18/2020 Bilateral Screening Mammogram, [facility]. Tissue Density: The breast tissue is almost entirely fat. Findings: Analyzed By CAD. Pattern Appears symmetrical and stable. No significant interval change is evident. A couple of benign calcifications are the right breast. Few scattered benign calcifications are within the left breast. No suspicious groups of microcalcifications, spiculated or lobular masses, architectural distortion or other secondary signs of malignancy are mammographically apparent. Overall Assessment: Benign, BI-RAD 2 Management: Screening Mammogram of both breasts in 1 year. A negative mammogram report should not preclude additional follow up of suspicious palpable abnormalities. Patient should continue monthly self breast exam. A clinical breast exam by your physician is recommended on an annual basis and results should be correlated with mammographic findings. Electronically signed and approved by: Mj Garcia D.O. Radiologis
== END | disposition home or self-care (01) ==
LOC: RADBDWWP 14:44
PROVIDERS: ATTEND Family Medicine
DX: Z12.31 Encounter for screening mammogram for malignant neoplasm of breast (principal); Z13.820 Encounter for screening for osteoporosis; Z13.6 Encounter for screening for cardiovascular disorders; M81.0 Age-related osteoporosis without current pathological fracture; M85.89 Other specified disorders of bone density and structure, multiple sites; Z78.0 Asymptomatic menopausal state
CPT/HCPCS: 77063; 77067; 77080

== ENCOUNTER → 2023-02-28 | Outpatient (CLI) | payer MEDICARE ==
--- NOTE | 2023-02-28 09:16 | US ---
EXAMINATION TYPE: US Aorta Screening DATE OF EXAM: 02/28/2023 COMPARISON: CLINICAL INDICATION: Female, 82 years old with history of Z136 SCREENING FOR CARDIOVASCULAR DISORDERS ; HTN- on meds. No family history. Previous smoker. TECHNIQUE: Multiple sonographic images of the abdominal aorta are obtained. FINDINGS: EXAM MEASUREMENTS: Abdominal Aorta: Proximal: 2.1 x 2.8 cm Mid: 1.5 x 1.5 cm Distal: 1.3 x 1.3 cm Bifurcation: Right- 0.9 x 0.8 cm Left- 0.6 x 0.7 cm PRINTER TECHNICIAN NOTES: Atherosclerotic changes seen. No AAA visualized at time of scan. Proximal Aorta a ppears ectatic. IMPRESSION: No evidence for abdominal aortic aneurysm
== END | disposition home or self-care (01) ==
LOC: RADUSWWP 08:11
PROVIDERS: ATTEND Family Medicine
DX: Z13.6 Encounter for screening for cardiovascular disorders (principal); Z13.820 Encounter for screening for osteoporosis; I10 Essential (primary) hypertension
CPT/HCPCS: 76706

== ENCOUNTER 2023-03-16 16:03 | Inpatient (IN) | payer MEDICARE ==
--- NOTE | 2023-03-16 16:04 | ED ---
General Adult HPI - General Source: RN notes reviewed <Ibis Bee - Last Filed: 03/16/23 16:04> <Ever Mendoza - Last Filed: 03/16/23 18:59> - General Stated complaint: Chest pain Time Seen by Provider: 03/16/23 16:04 - History of Present Illness Initial comments: 82-year-old female presents to the emergency Department chief complaint of chest pain, dizziness, shortness of breath. Patient was sent over by her primary care physician. (Ibis Bee) This is an 82-year-old female presents emergency Department complaining that she was short of breath when she was walking today so she went to see her primary medical care doctor. Patient states she almost passed out and when he got to the office he told her that her heart rate was 40 beats a minute and he center in directly to the hospital. Patient denies any chest pain or palpitations. Patient denies any history of similar. Patient denies being on a beta bryon. Patient denies any recent fever chills or cough per patient denies any vomiting or diarrhea. Patient states lying in bed here she feels at her baseline (Ever Mendoza) - Related Data Home Medications Medication Instructions Recorded Confirmed Furosemide [Lasix] 40 mg PO DAILY PRN 03/16/23 03/16/23 Naproxen Sodium [Aleve] 220 mg PO BID PRN 03/16/23 03/16/23 Valsartan [Diovan] 160 mg PO DAILY 03/16/23 03/16/23 Allergies Allergy/AdvReac Type Severity Reaction Status Date / Time celecoxib [From Celebrex] Allergy Itching Verified 03/16/23 17:05 ciprofloxacin [From Cipro] Allergy Itching Verified 03/16/23 17:05 ciprofloxacin HCl Allergy Itching Verified 03/16/23 17:05 [From Cipro] Penicillins Allergy Itching/Nehemias Verified 03/16/23 17:05 h Sulfa (Sulfonamide Allergy Itching/Nehemias Verified 03/16/23 17:05 Antibiotics) h Review of Systems ROS Other: All systems not noted in ROS Statement are negative. <Ibis Bee - Last Filed: 03/16/23 16:04> ROS Other: All systems not noted in ROS Statement are negative. <Ever Mendoza - Last Filed: 03/16/23 18:59> ROS Statement: Those systems with pertinent positive or pertinent negative responses have been documented in the HPI. Past Medical History Past Medical History: Diabetes Mellitus, Hypertension Additional Past Medical History / Comment(s): Seasonal ALLERGIES with known ALLERGY to dogs and cats. POLYMYALGIA History of Any Multi-Drug Resistant Organisms: None Reported Past Surgical History: Adenoidectomy, Bariatric Surgery, Cholecystectomy, Hernia Repair, Hysterectomy, Tonsillectomy Additional Past Surgical History / Comment(s): Partial hysterectomy, bilateral cataract removal and intraocular lens implants. COLONOSCOPY, EGD Past Anesthesia/Blood Transfusion Reactions: No Reported Reaction Past Psychological History: No Psychological Hx Reported Past Alcohol Use History: None Reported Past Drug Use History: None Reported - Past Family History Mother Family Medical History: Coronary Artery Disease (CAD), Diabetes Mellitus, Hypertension, Myocardial Infarction ([place]) Additional Family Medical History / Comment(s): Mother at age 69 from myocardial infarction. Father Additional Family Medical History / Comment(s): Father at age 77 from myocardial infarction. He had a previous history of peripheral vascular disease status post multiple lower extremity amputations. Brother(s) Additional Family Medical History / Comment(s): Patient has 3 half-brothers. One shot himself at approximately age 80. 2 from myocardial infarctions in their 80s. Patient has 2 full brothers and both from lung cancer and brain cancer. Son(s) Additional Family Medical History / Comment(s): Patient has 5 children. One from a motor vehicle accident. One son has hypertension at age 48. One son suffers from gastroesophageal reflux disease. One daughter is healthy at age 57 and one daughter healthy at age 53. Sister(s) Additional Family Medical History / Comment(s): Patient had 2 half sisters one from myocardial infarction and one in a motor vehicle accident. <Ibis Bee - Last Filed: 03/16/23 16:04> General Exam <Ever Mendoza - Last Filed: 03/16/23 18:59> - General Exam Comments Initial Comments: GENERAL: Patient is well-developed and well-nourished. Patient is nontoxic and well- hydrated and is in no acute distress. ENT: Neck is soft and supple. No significant lymphadenopathy is noted. Oropharynx is clear. Moist mucous membranes. Neck has full range of motion without eliciting any pain. EYES: The sclera were anicteric and conjunctiva were pink and moist. Extraocular movements were intact and pupils were equal round and reactive to light. Eyelids were unremarkable. PULMONARY: Unlabored respirations. Good breath sounds bilaterally. No audible rales rhonchi or wheezing was noted. CARDIOVASCULAR: Patient is bradycardic at 40 beats minute ABDOMEN: Soft and nontender with normal bowel sounds. SKIN: Skin is clear with no lesions or rashes and otherwise unremarkable. NEUROLOGIC: Patient is alert and oriented x3. Cranial nerves II through XII are grossly intact. Motor and sensory are also intact. Normal speech, volume and content. Symmetrical smile. MUSCULOSKELETAL: Normal extremities with adequate strength and full range of motion. LYMPHATICS: No significant lymphadenopathy is noted PSYCHIATRIC: Normal psychiatric evaluation. (Ever Mendoza) Course Vital Signs 03/16/23 03/16/23 16:05 16:40 Temperature 98.8 F Pulse Rate 43 L 39 L Respiratory 16 18 Rate Blood Pressure 124/71 117/64 O2 Sat by Pulse 97 98 Oximetry Medical Decision Making - Lab Data Result diagrams: 03/16/23 16:26 03/16/23 16:26 <Ever Mendoza - Last Filed: 03/16/23 18:59> - Medical Decision Making EKG was interpreted by myself. EKG shows sinus bradycardia at 42 bpm [place] interval 244 QRS is 9070 QT interval 452 QTC is 392. Patient's EKG shows no ST segment elevation or depression Was pt. sent in by a medical professional or institution (, PA, DIESEL LOCOMOTIVE CRANE OPERATOR, urgent care, hospital, or jail...) When possible be specific @ -Dr. Montgomery sent the patient in the emergency department Did you speak to anyone other than the patient for history (EMS, parent, family, police, friend...)? What history was obtained from this source @ -No Did you review nursing and triage notes (agree or disagree)? Why? @ -I reviewed and agree with nursing and triage notes Were old charts reviewed (outside hosp., previous admission, EMS record, old EKG, old radiological studies, urgent care reports/EKG's, jail records)? Report findings @ -I reviewed prior charts in prior lab work as well as prior EKGs and x-ray. Differential Diagnosis (chest pain, altered mental status, abdominal pain women, abdominal pain men, vaginal bleeding, weakness, fever, dyspnea, syncope, headache, dizziness, GI bleed, back pain, seizure, CVA, palpatations, mental health, musculoskeletal)? @ -Differential Syncope: Valvular disease, hypertrophic cardiomyopathy, pulmonary embolism, tamponade, tachycardia, bradycardia, [place], hypovolemia, hemorrhage, dissection, anemia, intracranial hemorrhage, seizure, hypoglycemia, carbon monoxide poisoning, this is not meant to be an all-inclusive list. EKG interpreted by me (3pts min.). @ -As above X-rays interpreted by me (1pt min.). @ -Patient's chest x-ray was interpreted by myself showed no acute abnormality CT interpreted by me (1pt min.). @ -None done U/S interpreted by me (1pt. min.). @ -None done What testing was considered but not performed or refused? (CT, X-rays, U/S, labs)? Why? @ -None What meds were considered but not given or refused? Why? @ -None Did you discuss the management of the patient with other professionals (professionals i.e. , PA, DIESEL LOCOMOTIVE CRANE OPERATOR, lab, RT, psych nurse, social work nurse, striper machine, teacher, information systems security officer, director case management)? Give summary @ -[facility] [place] Was smoking cessation discussed for >3mins.? @ -No Was critical care preformed (if so, how long)? @ -No Were there social determinants of health that impacted care today? How? (Homelessness, low income, unemployed, alcoholism, drug addiction, transpor tation, low edu. Level, literacy, decrease access to med. care, longterm, rehab)? @ -No Was there de-escalation of care discussed even if they declined (Discuss DNR or withdrawal of care, Hospice)? DNR status @ -No What co-morbidities impacted this encounter? (DM, HTN, Smoking, COPD, CAD, Cancer, CVA, ARF, Chemo, Hep., AIDS, mental health diagnosis, sleep apnea, morbid obesity)? @ -None Was patient admitted / discharged? Hospital course, mention meds given and route, prescriptions, significant lab abnormalities, going to OR and other pertinent info. @ -Patient is a symptomatically as long she is lying in bed per patient's heart rate stays in the low 40s whole time here. I spoke with [facility] see agreed to admit the patient admitted the patient I consult to cardiology Undiagnosed new problem with uncertain prognosis? @ -No Drug Therapy requiring intensive monitoring for toxicity (Heparin, Nitro, Insulin, Cardizem)? @ -No Were any procedures done? @ -No Diagnosis/symptom? @ -Bradycardia Acute, or Chronic, or Acute on Chronic? @ -Acute Uncomplicated (without systemic symptoms) or Complicated (systemic symptoms)? @ -Complicated Side effects of treatment? @ -No Exacerbation, Progression, or Severe Exacerbation? @ -No Poses a threat to life or bodily function? How? (Chest pain, [place], [place], pneumonia, PE, COPD, DKA, ARF, appy, cholecystitis, CVA, Diverticulitis, Homicidal, Suicidal, threat to staff... and all critical care pts) @ -Yes this could lead to poor perfusion and end organ dysfunction Diagnosis/symptom? @ -Near syncope Acute, or Chronic, or Acute on Chronic? @ -Acute Uncomplicated (without systemic symptoms) or Complicated (systemic symptoms)? @ -Complicated Side effects of treatment? @ -none Exacerbation, Progression, or Severe Exacerbation] @ -no Poses a threat to life or bodily function? @ -no (Ever Mendoza) - Lab Data Lab Results 03/16/23 03/16/23 03/16/23 Range/Units 16:26 16:26 16:26 WBC 9.0 (3.8-10.6) k/uL RBC 4.20 (3.80-5.40) m/uL Hgb 9.6 L (11.4-16.0) gm/dL Hct 31.8 L (34.0-46.0) % MCV 75.6 L (80.0-100.0) fL MCH 22.7 L (25.0-35.0) pg MCHC 30.1 L (31.0-37.0) g/dL RDW 16.6 H (11.5-15.5) % Plt Count 201 (150-450) k/uL MPV 8.6 Neutrophils % 63 % Lymphocytes % 23 % Monocytes % 5 % Eosinophils % 5 % Basophils % 0 % Neutrophils # 5.7 (1.3-7.7) k/uL Lymphocytes # 2.1 (1.0-4.8) k/uL Monocytes # 0.4 (0-1.0) k/uL Eosinophils # 0.4 (0-0.7) k/uL Basophils # 0.0 (0-0.2) k/uL Hypochromasia Marked Anisocytosis Slight Microcytosis Slight PT 10.1 (9.0-12.0) sec INR 0.9 (<1.2) APTT 22.0 (22.0-30.0) sec Sodium 139 (137-145) mmol/L Potassium 4.7 (3.5-5.1) mmol/L Chloride 107 (98-107) mmol/L Carbon Dioxide 20 L (22-30) mmol/L Anion Gap 12 mmol/L BUN 44 H (7-17) mg/dL Creatinine 1.62 H (0.52-1.04) mg/dL Est GFR (CKD-EPI)AfAm 34 (>60 ml/min/1.73 sqM) Est GFR (CKD-EPI)NonAf 29 (>60 ml/min/1.73 sqM) Glucose 100 H (74-99) mg/dL Calcium 8.8 (8.4-10.2) mg/dL Total Bilirubin 0.4 (0.2-1.3) mg/dL AST 22 (14-36) U/L ALT 14 (4-34) U/L Alkaline Phosphatase 96 (38-126) U/L Troponin I (0.000-0.034) ng/mL Total Protein 6.1 L (6.3-8.2) g/dL Albumin 3.9 (3.5-5.0) g/dL 03/16/23 Range/Units 16:26 WBC (3.8-10.6) k/uL RBC (3.80-5.40) m/uL Hgb (11.4-16.0) gm/dL Hct (34.0-46.0) % MCV (80.0-100.0) fL MCH (25.0-35.0) pg MCHC (31.0-37.0) g/dL RDW (11.5-15.5) % Plt Count (150-450) k/uL MPV Neutrophils % % Lymphocytes % % Monocytes % % Eosinophils % % Basophils % % Neutrophils # (1.3-7.7) k/uL Lymphocytes # (1.0-4.8) k/uL Monocytes # (0-1.0) k/uL Eosinophils # (0-0.7) k/uL Basophils # (0-0.2) k/uL Hypochromasia Anisocytosis Microcytosis PT (9.0-12.0) sec INR (<1.2) APTT (22.0-30.0) sec Sodium (137-145) mmol/L Potassium (3.5-5.1) mmol/L Chloride (98-107) mmol/L Carbon Dioxide (22-30) mmol/L Anion Gap mmol/L BUN (7-17) mg/dL Creatinine (0.52-1.04) mg/dL Est GFR (CKD-EPI)AfAm (>60 ml/min/1.73 sqM) Est GFR (CKD-EPI)NonAf (>60 ml/min/1.73 sqM) Glucose (74-99) mg/dL Calcium (8.4-10.2) mg/dL Total Bilirubin (0.2-1.3) mg/dL AST (14-36) U/L ALT (4-34) U/L Alkaline Phosphatase (38-126) U/L Troponin I <0.012 (0.000-0.034) ng/mL Total Protein (6.3-8.2) g/dL Albumin (3.5-5.0) g/dL Disposition <Ibis Bee - Last Filed: 03/16/23 16:04> Time of Disposition: 18:59 <Ever Mendoza - Last Filed: 03/16/23 18:59> Clinical Impression: Near syncope, Bradycardia Disposition: ADMITTED IP TO THIS HOSP Referrals: Zachariah Montgomery MD [Primary Care Provider] - 1-2 days
[2023-03-16 16:47] LABS: Anisocytosis Slight; Basophils % (A) 0 %; Eosinophils # (A) 0.4 k/uL (0-0.7); Eosinophils % (A) 5 %; HCT 31.8 % (34.0-46.0); HGB 9.6 gm/dL (11.4-16.0); Hypochromasia Marked; Lymphocytes # (A) 2.1 k/uL (1.0-4.8); Lymphocytes % (A) 23 %; MCH 22.7 pg (25.0-35.0); MCHC 30.1 g/dL (31.0-37.0); MCV 75.6 fL (80.0-100.0); Mean Platelet Volume 8.6; Microcytosis Slight; Monocytes # (A) 0.4 k/uL (0-1.0); Monocytes % (A) 5 %; Neutrophils # (A) 5.7 k/uL (1.3-7.7); Neutrophils % (A) 63 %; Platelet Count 201 k/uL (150-450); RDW 16.6 % (11.5-15.5)
[2023-03-16 16:58] LABS: Albumin 3.9 g/dL (3.5-5.0); Calcium 8.8 mg/dL (8.4-10.2); Potassium 4.7 mmol/L (3.5-5.1); Total Bilirubin 0.4 mg/dL (0.2-1.3); Total Protein 6.1 g/dL (6.3-8.2)
[2023-03-16 17:01] LABS: INR 0.9 (<1.2); Prothrombin Time 10.1 sec (9.0-12.0)
--- NOTE | 2023-03-16 17:29 | XR ---
EXAMINATION: XR chest 2V: 03/16/2023 5:04 PM CLINICAL INDICATION: chest pain TECHNIQUE: Departmental protocol COMPARISON: 04/04/2022 FINDINGS: The lungs appear to be clear. The pleural spaces are negative. EKG leads. The cardiac silhouette is not enlarged. The skeletal structures and soft tissues are negative for acute findings. IMPRESSION: No definite acute radiographic process.
[2023-03-16] MEDS ORDERED: NITROGLYCERIN SL TABS 0.4 MG TAB SUBLINGUAL PRN (18:59)
[2023-03-16] MEDS ORDERED: ACETAMINOPHEN TAB 500 MG TAB PO STA (21:10)
[2023-03-16] MEDS: NITROGLYCERIN OINT 1 INCH/GM PACKET TOPICAL SCH (23:17)
[2023-03-17] MEDS: NITROGLYCERIN OINT 1 INCH/GM PACKET TOPICAL SCH ×3 (05:23→17:00)
--- NOTE | 2023-03-17 09:02 | P.CRDCN ---
History of Present Illness Consult date: 03/17/23 Reason for Consult (text): Bradycardia History of present illness: History of present illness: This is an 82-year-old female patient of Dr. 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 We have been asked to evaluate the patient for bradycardia. Patient was last seen in the office on 02/27 there is concern about her blood pressure control with fluctuating readings. At that time, she was in a sinus rhythm and instructed to continue her current medications area patient has been monitoring her blood pressure very closely at home and noticed that her heart rate was at 40. This happened a few days ago and then again she was feeling dizzy and her heart rate was at 40 she ended up going to bed in the morning she checked it again and it was 40. While talking on the patient her heart rate goes up to 55. Patient was ambulated in the hallway in the emergency center and her heart rate went up to 75 with activity. She states she has a follow-up appointment with Dr. rice on Monday. EKG sinus bradycardia, telemetry sinus bradycardia Chest x-ray: No acute process WBC 9, hemoglobin 9.6, platelet count 201. INR 0.9. BUN 44 creatinine 1.62 with baseline of 1.3. Troponin negative 3. Liver function tests are normal Home cardiac medications: Valsartan 160 mg daily, Lasix 40 mg daily as needed Echocardiogram 06/2022: Normal EF, mild MS, mild AR, mild MR, mild Lexiscan stress test 05/2022 normal Review Of Systems: At the time of my evaluation: Constitutional: No fever, no chills. No weakness, fatigue or lethargy. EENT: No headache. No dizziness. Lungs: No shortness of breath, cough, no sputum production. No wheezing. Cardiovascular: No chest pain, no lower extremity edema. No palpitations. No paroxysmal nocturnal dyspnea. No orthopnea. No lightheadedness or dizziness. No syncopal episodes. Abdominal: No abdominal pain. No nausea, vomiting. No diarrhea. No constipation. No bloody or tarry stools. Genitourinary: No dysuria. No urinary retention. Musculoskeletal: No myalgias. No muscle weakness, no frequent falls. No back pain. No neck pain. Integumentary: No wounds. No rash. No unusual bruising. Neurologic: No aphasia. No facial droop. No change in mentation. No head injury. No headache. Physical examination: Gen: This is an 82-year-old female. She is resting on ER stretcher and appears to be comfortable and in no acute distress VS: reviewed HEENT: Head is atraumatic, normocephalic. Pupils equal, round. Sclerae is anicteric. NECK: Supple. No JVD. . LUNGS: Clear to auscultation. No wheezes or rhonchi. No intercostal retractions. HEART: Regular rate and rhythm. Systolic murmur. Bradycardic. ABDOMEN: Soft No tenderness. EXTREMITIES: No pedal edema. No calf tenderness. NEUROLOGICAL: Patient is awake, alert and oriented x3. Assessment: Bradycardia. Hypertension Valvular heart disease with aortic and mitral stenosis, aortic and mitral regurgitation Plan: Continued telemetry monitoring Obtain 2-D echocardiogram and Doppler study to assess cardiac structure and function If echocardiogram is unremarkable with known baseline changes, patient is cleared for discharge from cardiology and may follow up with Dr. Lebron on Monday as scheduled Thank you kindly for this consultation. Nurse practitioner note has been reviewed, I agree with documented findings and plan of care. Patient was seen and examined. Past Medical History Past Medical History: Diabetes Mellitus, Hypertension Additional Past Medical History / Comment(s): Seasonal ALLERGIES with known ALLERGY to dogs and cats. POLYMYALGIA History of Any Multi-Drug Resistant Organisms: None Reported Past Surgical History: Adenoidectomy, Bariatric Surgery, Cholecystectomy, Hernia Repair, Hysterectomy, Tonsillectomy Additional Past Surgical History / Comment(s): Partial hysterectomy, bilateral cataract removal and intraocular lens implants. COLONOSCOPY, EGD Past Anesthesia/Blood Transfusion Reactions: No Reported Reaction Past Psychological History: No Psychological Hx Reported Past Alcohol Use History: None Reported Past Drug Use History: None Reported - Past Family History Mother Family Medical History: Coronary Artery Disease (CAD), Diabetes Mellitus, Hypertension, Myocardial Infarction ([place]) Additional Family Medical History / Comment(s): Mother at age 69 from myocardial infarction. Father Additional Family Medical History / Comment(s): Father at age 77 from myocardial infarction. He had a previous history of peripheral vascular disease status post multiple lower extremity amputations. Brother(s) Additional Family Medical History / Comment(s): Patient has 3 half-brothers. One shot himself at approximately age 80. 2 from myocardial infarctions in their 80s. Patient has 2 full brothers and both from lung cancer and brain cancer. Son(s) Additional Family Medical History / Comment(s): Patient has 5 children. One from a motor vehicle accident. One son has hypertension at age 48. One son suffers from gastroesophageal reflux disease. One daughter is healthy at age 57 and one daughter healthy at age 53. Sister(s) Additional Family Medical History / Comment(s): Patient had 2 half sisters one from myocardial infarction and one in a motor vehicle accident. Medications and Allergies Home Medications Medication Instructions Recorded Confirmed Type Furosemide [Lasix] 40 mg PO DAILY PRN 03/16/23 03/16/23 History Naproxen Sodium [Aleve] 220 mg PO BID PRN 03/16/23 03/16/23 History Valsartan [Diovan] 160 mg PO DAILY 03/16/23 03/16/23 History Allergies Allergy/AdvReac Type Severity Reaction Status Date / Time celecoxib [From Celebrex] Allergy Itching Verified 03/16/23 17:05 ciprofloxacin [From Cipro] Allergy Itching Verified 03/16/23 17:05 ciprofloxacin HCl Allergy Itching Verified 03/16/23 17:05 [From Cipro] Penicillins Allergy Itching/Nehemias Verified 03/16/23 17:05 h Sulfa (Sulfonamide Allergy Itching/Nehemias Verified 03/16/23 17:05 Antibiotics) h Physical Exam Vitals: Vital Signs Temp Pulse Pulse Resp BP Pulse Ox 03/17/23 03:00 58 L 16 124/45 95 03/17/23 01:00 33 L 16 131/46 97 03/17/23 00:00 46 L 14 131/44 96 03/16/23 22:00 36 L 16 123/45 96 03/16/23 20:00 41 L 16 98 03/16/23 19:27 71 61 16 97 03/16/23 19:11 39 L 18 126/93 98 03/16/23 16:40 39 L 18 117/64 98 03/16/23 16:05 98.8 F 43 L 16 124/71 97 Intake and Output 03/16/23 03/17/23 03/17/23 22:59 06:59 14:59 Other: Weight 83.915 kg Results 03/16/23 16:26 03/16/23 16:26 Cardiac Enzymes 03/16/23 03/16/23 03/16/23 Range/Units 16:26 16:26 19:30 AST 22 (14-36) U/L Troponin I <0.012 <0.012 (0.000-0.034) ng/mL 03/16/23 Range/Units 22:58 AST (14-36) U/L Troponin I <0.012 (0.000-0.034) ng/mL Coagulation 03/16/23 Range/Units 16:26 PT 10.1 (9.0-12.0) sec APTT 22.0 (22.0-30.0) sec CBC 03/16/23 Range/Units 16:26 WBC 9.0 (3.8-10.6) k/uL RBC 4.20 (3.80-5.40) m/uL Hgb 9.6 L (11.4-16.0) gm/dL Hct 31.8 L (34.0-46.0) % Plt Count 201 (150-450) k/uL Comprehensive Metabolic Panel 03/16/23 Range/Units 16:26 Sodium 139 (137-145) mmol/L Potassium 4.7 (3.5-5.1) mmol/L Chloride 107 (98-107) mmol/L Carbon Dioxide 20 L (22-30) mmol/L BUN 44 H (7-17) mg/dL Creatinine 1.62 H (0.52-1.04) mg/dL Glucose 100 H (74-99) mg/dL Calcium 8.8 (8.4-10.2) mg/dL AST 22 (14-36) U/L ALT 14 (4-34) U/L Alkaline Phosphatase 96 (38-126) U/L Total Protein 6.1 L (6.3-8.2) g/dL Albumin 3.9 (3.5-5.0) g/dL Current Medications Generic Name Dose Route Start Last Admin Trade Name Freq PRN Reason Stop Dose Admin Aspirin 325 mg 03/17/23 09:00 Aspirin 325 Mg Tab PO DAILY MIGUEL Nitroglycerin 0.4 mg 03/16/23 18:59 Nitroglycerin Sl Tabs 0.4 Mg Tab SUBLINGUAL Q5M PRN Chest Pain Nitroglycerin 1 inch 03/17/23 00:00 03/17/23 05:23 Nitroglycerin Oint 1 Inch/Gm Packet TOPICAL Not Given Q6HR MIGUEL Intake and Output 03/16/23 03/17/23 03/17/23 22:59 06:59 14:59 Other: Weight 83.915 kg 03/16/23 16:26 03/16/23 16:26
[2023-03-17] MEDS: ASPIRIN 325 MG TAB PO SCH (10:53)
--- NOTE | 2023-03-17 11:49 | CA ---
Transthoracic Echo Report Name: Norma Rodriguez Age: 82 Gender: F : 1940 Exam Date: 03/17/2023 10:33 Exam Location: [facility] Ht (in): 63 Wt (lb): 185 Ordering Physician: Teri Lara Attending/Referring Phys: [id number], Marco Ripper Operator Maggy Hardy RDCS Procedure CPT: Indications: LVF Cardiac Hx: Technical Quality: Fair Contrast 1: Total Dose (mL): Contrast 2: Total Dose (mL): MEASUREMENTS (Male / Female) Normal Values 2D ECHO LV Diastolic Diameter PLAX 4.7 cm 4.2 - 5.9 / 3.9 - 5.3 cm LV Systolic Diameter PLAX 3.1 cm IVS Diastolic Thickness 1.1 cm 0.6 - 1.0 / 0.6 - 0.9 cm LVPW Diastolic Thickness 1.2 cm 0.6 - 1.0 / 0.6 - 0.9 cm LV Relative Wall Thickness 0.5 RV Internal Dim ED PLAX 3.7 cm Aortic Root Diameter 2.1 cm LA Systolic Diameter LX 3.6 cm 3.0 - 4.0 / 2.7 - 3.8 cm LA Volume 64.8 cm??? 18 - 58 / 22 - 52 cm??? M-MODE Aortic Root Diameter MM 3.2 cm MV E Point Septal Separation 0.7 cm AV Cusp Separation MM 2.1 cm DOPPLER AV Peak Velocity 264.8 cm/s AV Peak Gradient 28.0 mmHg AV Mean Velocity 166.4 cm/s AV Mean Gradient 13.0 mmHg AV Velocity Time Integral 59.9 cm AI Peak Velocity 298.9 cm/s AI Peak Gradient 35.7 mmHg AI Pressure Half Time 1606.4 ms LVOT Peak Velocity 171.1 cm/s LVOT Peak Gradient 11.7 mmHg MV Area PHT 2.2 cm??? Mitral E Point Velocity 97.1 cm/s Mitral A Point Velocity 161.3 cm/s Mitral E to A Ratio 0.6 MV Deceleration Time 341.8 ms MV E' Velocity 6.9 cm/s Mitral E to MV E' Ratio 14.0 TR Peak Velocity 272.8 cm/s TR Peak Gradient 29.8 mmHg Right Ventricular Systolic Press 34.1 mmHg FINDINGS Left Ventricle Left ventricular ejection fraction is estimated at 55-60 %. Left ventricular cavity size normal. Mildly increased septal wall thickness. Mildly increased posterior wall thickness. Normal left ventricular wall motion. Right Ventricle Mild right ventricular dilatation. Mild pulmonary hypertension. Right Atrium Normal right atrial size. Left Atrium Moderately increased left atrial volume. Mitral Valve Mitral valve thickened. Moderate mitral annular calcification. Mild mitral regurgitation. Aortic Valve Trileaflet aortic valve. Aortic valve sclerosis. Mild aortic stenosis with a peak gradient of 28 mmHg and a mean gradient of 13 mmHg. Mild aortic regurgitation. Tricuspid Valve Structurally normal tricuspid valve. Mild tricuspid regurgitation. Pulmonic Valve Structurally normal pulmonic valve. Mild pulmonic regurgitation. Pericardium Normal pericardium. No pericardial effusion. Aorta Normal size aortic root and proximal ascending aorta. CONCLUSIONS Left ventricular ejection fraction 55-60% Mildly increased left ventricular wall thickness Moderate mitral calcification Mild mitral regurgitation Mild aortic stenosis No pericardial effusion Previewed by: Dr. Julien Doll DO (Electronically Signed) Final Date: 17 Mar 2023 11:49
[2023-03-17] MEDS: VALSARTAN 160 MG TAB PO SCH (13:04)
[2023-03-17 15:12] LABS: Chol/HDL Ratio 2.43 Ratio; LDL Cholesterol,Calculated 76.8 mg/dL (0.0-131.0); VLDL Calculation 9.84 mg/dL (5.00-40.00)
[2023-03-18] MEDS: NITROGLYCERIN OINT 1 INCH/GM PACKET TOPICAL SCH ×5 (01:41→23:49)
[2023-03-18] MEDS: VALSARTAN 160 MG TAB PO SCH (08:46)
[2023-03-18] MEDS: ASPIRIN 325 MG TAB PO SCH (08:46)
[2023-03-18 12:12] LABS: Anisocytosis Slight; Basophils % (A) 1 %; Eosinophils # (A) 0.4 k/uL (0-0.7); Eosinophils % (A) 5 %; HCT 30.4 % (34.0-46.0); Hypochromasia Marked; Lymphocytes # (A) 1.7 k/uL (1.0-4.8); Lymphocytes % (A) 26 %; MCH 22.8 pg (25.0-35.0); MCHC 29.8 g/dL (31.0-37.0); MCV 76.6 fL (80.0-100.0); Mean Platelet Volume 10.9; Microcytosis Slight; Monocytes # (A) 0.3 k/uL (0-1.0); Monocytes % (A) 4 %; Neutrophils % (A) 61 %; Platelet Count 176 k/uL (150-450); RBC 3.96 m/uL (3.80-5.40); RDW 16.5 % (11.5-15.5); WBC 6.6 k/uL (3.8-10.6)
[2023-03-18 12:29] LABS: Potassium 4.9 mmol/L (3.5-5.1)
--- NOTE | 2023-03-18 15:14 | P.PN ---
Subjective Progress Note Date: 03/18/23 This is Warren Yun NP, I'm dictating on behalf of Dr. Hernandez's H&P and A&P. Patient was interviewed and examined. Patient is a pleasant 82-year-old female who presented to hospital with bradycardia and near syncope. She reports that she is feeling okay today. Her heart rate is noted to be in the 50s today. Patient states that she doesn't have any symptoms until her heart rate gets into the low 40s or high 30s. Patient does have a documented heart rate of 36 in the chart. An echocardiogram was completed yesterday, which demonstrates similar results to prior echo. GENERAL: Well-appearing, well-nourished and in no acute distress. NECK: Supple without JVD or thyromegaly. LUNGS: Breath sounds clear to auscultation bilaterally. Respiration equal and unlabored. No wheezes, rales or rhonchi. HEART: Regular rate and rhythm without murmurs, rubs or gallops. S1 and S2 heard. EXTREMITIES: Normal range of motion, no edema. No clubbing or cyanosis. Peripheral pulses intact and strong. VITALS: Temp 97.8, pulse 54, heart rate 18, blood pressure 146/80, O2 saturation 99% on room air TELEMETRY: Sinus bradycardia LABS: White count 6.6, hemoglobin 9.0, platelets 176, sodium 139, potassium 4.9, chloride 108, B1 39, creatinine 1.24, calcium 9.0, triglycerides 49.2, cholesterol 147, LDL 76.8, HDL 60.4, TSH 1.87 IMPRESSION: 1. Sick sinus syndrome 2. Bradycardia 3. Hypertension 4. 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 Patient describes signs and symptoms of sick sinus syndrome. Without pacemaker, patient is at high risk for falls secondary to syncope due to significant bradycardia. Further recommendations pending patient's clinical course. Objective - Vital Signs Vital signs: Vital Signs Temp 97.9 F 03/18/23 12:00 Pulse 44 L 03/18/23 12:00 Resp 18 03/18/23 12:00 BP 115/46 03/18/23 12:00 Pulse Ox 100 03/18/23 12:00 FiO2 Intake & Output 03/17/23 03/18/23 03/18/23 18:59 06:59 18:59 Intake Total 100 480 Balance 100 480 Intake: IV 10 Invasive Line 1 10 Oral 90 480 Other: Voiding Method Toilet Toilet Toilet # Voids 1 1 - Labs CBC & Chem 7: 03/18/23 11:53 03/18/23 11:53 Labs: Abnormal Lab Results - Last 24 Hours (Table) 03/17/23 03/18/23 03/18/23 Range/Units 09:08 11:53 11:53 Hgb 9.0 L (11.4-16.0) gm/dL Hct 30.4 L (34.0-46.0) % MCV 76.6 L (80.0-100.0) fL MCH 22.8 L (25.0-35.0) pg MCHC 29.8 L (31.0-37.0) g/dL RDW 16.5 H (11.5-15.5) % Chloride 108 H (98-107) mmol/L BUN 39 H (7-17) mg/dL Creatinine 1.24 H (0.52-1.04) mg/dL HDL Cholesterol 60.40 H (40.00-60.00) mg/dL
--- NOTE | 2023-03-18 16:39 | P.HPIM ---
History of Present Illness H&P Date: 03/17/23 Chief Complaint: Bradycardia/dizziness 82-year-old female patient of Dr. 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 We have been asked to evaluate the patient for bradycardia. Patient was last seen in the office on 02/27 there is concern about her blood pressure control with fluctuating readings. At that time, she was in a sinus rhythm and instructed to continue her current medications area patient has been monitoring her blood pressure very closely at home and noticed that her heart rate was at 40. This happened a few days ago and then again she was feeling dizzy and her heart rate was at 40 she ended up going to bed in the morning she checked it again and it was 40. While talking on the patient her heart rate goes up to 55. Patient was ambulated in the hallway in the emergency center and her heart rate went up to 75 with activity. She states she has a follow-up appointment with Dr. rice on Monday. EKG sinus bradycardia, telemetry sinus bradycardia Chest x-ray: No acute process WBC 9, hemoglobin 9.6, platelet count 201. INR 0.9. BUN 44 creatinine 1.62 with baseline of 1.3. Troponin negative 3. Liver function tests are normal Home cardiac medications: Valsartan 160 mg daily, Lasix 40 mg daily as needed Echocardiogram 06/2022: Normal EF, mild MS, mild AR, mild MR, mild Lexiscan stress test 05/2022 normal Review of Systems REVIEW OF SYSTEMS: CONSTITUTIONAL: No fever, no malaise, no fatigue. HEENT: No recent visual problems or hearing problems. Denied any sore throat. CARDIOVASCULAR: No chest pain, orthopnea, PND, no palpitations, no syncope. PULMONARY: No shortness of breath, no cough, no hemoptysis. GASTROINTESTINAL: No diarrhea, no nausea, no vomiting, no abdominal pain. NEUROLOGICAL: No headaches, no weakness, no numbness. HEMATOLOGICAL: Denies any bleeding or petechiae. GENITOURINARY: Denies any burning micturition, frequency, or urgency. MUSCULOSKELETAL/RHEUMATOLOGICAL: Denies any joint pain, swelling, or any muscle pain. ENDOCRINE: Denies any polyuria or polydipsia. The rest of the 14-point review of systems is negative. Past Medical History Past Medical History: Diabetes Mellitus, Hypertension Additional Past Medical History / Comment(s): Seasonal ALLERGIES with known A LLERGY to dogs and cats. POLYMYALGIA History of Any Multi-Drug Resistant Organisms: None Reported Past Surgical History: Adenoidectomy, Bariatric Surgery, Cholecystectomy, Hernia Repair, Hysterectomy, Tonsillectomy Additional Past Surgical History / Comment(s): Partial hysterectomy, bilateral cataract removal and intraocular lens implants. COLONOSCOPY, EGD Past Anesthesia/Blood Transfusion Reactions: No Reported Reaction Past Psychological History: No Psychological Hx Reported Past Alcohol Use History: None Reported Past Drug Use History: None Reported - Past Family History Mother Family Medical History: Coronary Artery Disease (CAD), Diabetes Mellitus, Hyper tension, Myocardial Infarction ([place]) Additional Family Medical History / Comment(s): Mother at age 69 from myocardial infarction. Father Additional Family Medical History / Comment(s): Father at age 77 from myocardial infarction. He had a previous history of peripheral vascular disease status post multiple lower extremity amputations. Brother(s) Additional Family Medical History / Comment(s): Patient has 3 half-brothers. One shot himself at approximately age 80. 2 from myocardial infarctions in their 80s. Patient has 2 full brothers and both from lung cancer and brain cancer. Son(s) Additional Family Medical History / Comment(s): Patient has 5 children. One from a motor vehicle accident. One son has hypertension at age 48. One son suffers from gastroesophageal reflux disease. One daughter is healthy at age 57 and one daughter healthy at age 53. Sister(s) Additional Family Medical History / Comment(s): Patient had 2 half sisters one from myocardial infarction and one in a motor vehicle accident. Medications and Allergies Home Medications Medication Instructions Recorded Confirmed Type Furosemide [Lasix] 40 mg PO DAILY PRN 03/16/23 03/16/23 History Naproxen Sodium [Aleve] 220 mg PO BID PRN 03/16/23 03/16/23 History Valsartan [Diovan] 160 mg PO DAILY 03/16/23 03/16/23 History Allergies Allergy/AdvReac Type Severity Reaction Status Date / Time celecoxib [From Celebrex] Allergy Itching Verified 03/16/23 17:05 ciprofloxacin [From Cipro] Allergy Itching Verified 03/16/23 17:05 ciprofloxacin HCl Allergy Itching Verified 03/16/23 17:05 [From Cipro] Penicillins Allergy Itching/Nehemias Verified 03/16/23 17:05 h Sulfa (Sulfonamide Allergy Itching/Nehemias Verified 03/16/23 17:05 Antibiotics) h Physical Exam Vitals: Vital Signs Temp Pulse Pulse Resp BP BP Pulse Ox 03/17/23 10:56 98 F 55 L 16 156/51 99 03/17/23 08:00 98 F 60 18 136/52 94 L 03/17/23 07:27 75 20 95 03/17/23 03:00 58 L 16 124/45 95 03/17/23 01:00 33 L 16 131/46 97 03/17/23 00:00 46 L 14 131/44 96 03/16/23 22:00 36 L 16 123/45 96 03/16/23 20:00 41 L 16 98 03/16/23 19:27 71 61 16 97 03/16/23 19:11 39 L 18 126/93 98 03/16/23 16:40 39 L 18 117/64 98 03/16/23 16:05 98.8 F 43 L 16 124/71 97 Intake and Output 03/16/23 03/17/23 03/17/23 22:59 06:59 14:59 Other: Weight 83.915 kg PHYSICAL EXAMINATION: GENERAL: The patient is alert and oriented x3, not in any acute distress. Well d eveloped, well nourished. HEENT: Pupils are round and equally reacting to light. EOMI. No scleral icterus. No conjunctival pallor. Normocephalic, atraumatic. No pharyngeal erythema. No thyromegaly. CARDIOVASCULAR: S1 and S2 present. No murmurs, rubs, or gallops. PULMONARY: Chest is clear to auscultation, no wheezing or crackles. ABDOMEN: Soft, nontender, nondistended, normoactive bowel sounds. No palpable organomegaly. MUSCULOSKELETAL: No joint swelling or deformity. EXTREMITIES: No cyanosis, clubbing, or pedal edema. NEUROLOGICAL: Gross neurological examination did not reveal any focal deficits. SKIN: No rashes. Results CBC & Chem 7: 03/18/23 11:53 03/18/23 11:53 Labs: Abnormal Lab Results - Last 24 Hours (Table) 03/16/23 03/16/23 Range/Units 16:26 16:26 Hgb 9.6 L (11.4-16.0) gm/dL Hct 31.8 L (34.0-46.0) % MCV 75.6 L (80.0-100.0) fL MCH 22.7 L (25.0-35.0) pg MCHC 30.1 L (31.0-37.0) g/dL RDW 16.6 H (11.5-15.5) % Carbon Dioxide 20 L (22-30) mmol/L BUN 44 H (7-17) mg/dL Creatinine 1.62 H (0.52-1.04) mg/dL Glucose 100 H (74-99) mg/dL Total Protein 6.1 L (6.3-8.2) g/dL Assessment and Plan Assessment: 1. Bradycardia; symptomatic/ Sick sinus syndrome - Patient's heart rate dipping down in 30 on the monitor; plan is to admit patient to telemetry; monitor EKG and trend troponin - 2-D echo is ordered - We will check thyroid profile 2. Hypertension; Diovan 160 mg daily 3. Valvular heart disease; aortic and mitral stenosis with regurgitation; patient takes Lasix 40 mg daily as needed 4. Diabetes mellitus by history; currently not on any medication; we will monitor Accu-Cheks every before meals and at bedtime with sliding scale as needed 5. Seasonal ALLERGIES; clinically stable DVT prophylaxis; SCDs CODE STATUS; full code
--- NOTE | 2023-03-18 16:39 | P.PN ---
Subjective Progress Note Date: 03/18/23 82-year-old female patient of Dr. 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 We have been asked to evaluate the patient for bradycardia. Patient was last seen in the office on 02/27 there is concern about her blood pressure control with fluctuating readings. At that time, she was in a sinus rhythm and instructed to continue her current medications area patient has been monitoring her blood pressure very closely at home and noticed that her heart rate was at 40. This happened a few days ago and then again she was feeling dizzy and her heart rate was at 40 she ended up going to bed in the morn ing she checked it again and it was 40. While talking on the patient her heart rate goes up to 55. Patient was ambulated in the hallway in the emergency center and her heart rate went up to 75 with activity. She states she has a follow-up appointment with Dr. rice on Monday. EKG sinus bradycardia, telemetry sinus bradycardia Chest x-ray: No acute process WBC 9, hemoglobin 9.6, platelet count 201. INR 0.9. BUN 44 creatinine 1.62 with baseline of 1.3. Troponin negative 3. Liver function tests are normal Home cardiac medications: Valsartan 160 mg daily, Lasix 40 mg daily as needed Echocardiogram 06/2022: Normal EF, mild MS, mild AR, mild MR, mild Lexiscan stress test 05/2022 normal Objective - Vital Signs Vital signs: Vital Signs Temp 97.8 F 03/18/23 08:00 Pulse 54 L 03/18/23 08:00 Resp 18 03/18/23 08:00 BP 146/80 03/18/23 08:00 Pulse Ox 99 03/18/23 08:00 FiO2 Intake & Output 03/17/23 03/18/23 03/18/23 18:59 06:59 18:59 Intake Total 100 240 Balance 100 240 Intake: IV 10 Invasive Line 1 10 Oral 90 240 Other: Voiding Method Toilet Toilet Toilet # Voids 1 1 - Exam GENERAL: The patient is alert and oriented x3, not in any acute distress. Well developed, well nourished. HEENT: Pupils are round and equally reacting to light. EOMI. No scleral icterus. No conjunctival pallor. Normocephalic, atraumatic. No pharyngeal erythema. No thyromegaly. CARDIOVASCULAR: S1 and S2 present. No murmurs, rubs, or gallops. PULMONARY: Chest is clear to auscultation, no wheezing or crackles. ABDOMEN: Soft, nontender, nondistended, normoactive bowel sounds. No palpable organomegaly. MUSCULOSKELETAL: No joint swelling or deformity. EXTREMITIES: No cyanosis, clubbing, or pedal edema. NEUROLOGICAL: Gross neurological examination did not reveal any focal deficits. SKIN: No rashes. - Labs CBC & Chem 7: 03/18/23 11:53 03/18/23 11:53 Labs: Abnormal Lab Results - Last 24 Hours (Table) 03/17/23 Range/Units 09:08 HDL Cholesterol 60.40 H (40.00-60.00) mg/dL
[2023-03-19] MEDS: NITROGLYCERIN OINT 1 INCH/GM PACKET TOPICAL SCH ×3 (07:05→18:39)
[2023-03-19] MEDS: VALSARTAN 160 MG TAB PO SCH (09:44)
[2023-03-19] MEDS: ASPIRIN 325 MG TAB PO SCH (09:44)
[2023-03-19] MEDS: SODIUM CHLORIDE 0.9% 1,000 ML IV SCH ×2 (12:28→18:39)
--- NOTE | 2023-03-19 13:59 | P.PN ---
Subjective Progress Note Date: 03/19/23 This is Warren Yun NP, I'm dictating on behalf of Dr. Hernandez's H&P and A&P. Patient was interviewed and examined. Patient is a pleasant 82-year-old female who presented to the hospital with bradycardia and near syncope. Patient had another bradycardic episode yesterday afternoon, with a heart rate less than 40. Patient felt syncopal at that time. The major concern with this patient is that with the significant bradycardia she is susceptable to falling and sustaining a major injury. Patient needs a pacemaker. This was discussed with the patient, and she is agreeable to having a pacemaker placed. She has no complaints this morning. GENERAL: Well-appearing, well-nourished and in no acute distress. NECK: Supple without JVD or thyromegaly. LUNGS: Breath sounds clear to auscultation bilaterally. Respiration equal and unlabored. No wheezes, rales or rhonchi. HEART: Regular rate and rhythm without murmurs, rubs or gallops. S1 and S2 heard. EXTREMITIES: Normal range of motion, no edema. No clubbing or cyanosis. Peripheral pulses intact and strong. VITALS: Temp 98.7, pulse 56, respirations 16, blood pressure 115/72, O2 saturation 99% on room air TELEMETRY: Sinus bradycardia LABS: Reviewed, no new labs since yesterday IMPRESSION: 1. Sick sinus syndrome 2. Bradycardia 3. Hypertension 4. 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 Vancomycin 1.25gm at 0400. NPO at midnight. Further recommendations based on patient's clinical course. Objective - Vital Signs Vital signs: Vital Signs Temp 98.7 F 03/19/23 09:30 Pulse 56 L 03/19/23 09:30 Resp 16 03/19/23 09:30 BP 115/72 03/19/23 09:30 Pulse Ox 98 03/19/23 10:04 FiO2 Intake & Output 03/18/23 03/19/23 03/19/23 18:59 06:59 18:59 Intake Total 840 240 Balance 840 240 Intake: Oral 840 240 Other: Voiding Method Toilet Toilet # Voids 3 1 - Labs CBC & Chem 7: 03/18/23 11:53 03/18/23 11:53 Labs: Abnormal Lab Results - Last 24 Hours (Table) 03/18/23 03/18/23 Range/Units 11:53 11:53 Hgb 9.0 L (11.4-16.0) gm/dL Hct 30.4 L (34.0-46.0) % MCV 76.6 L (80.0-100.0) fL MCH 22.8 L (25.0-35.0) pg MCHC 29.8 L (31.0-37.0) g/dL RDW 16.5 H (11.5-15.5) % Chloride 108 H (98-107) mmol/L BUN 39 H (7-17) mg/dL Creatinine 1.24 H (0.52-1.04) mg/dL
--- NOTE | 2023-03-19 16:09 | P.PN ---
Progress Note - Text 82-year-old female with recurrent dizzy spells weakness near syncopal spells Documented significant sinus bradycardia in the mid 30s Not on any AV mikaela blocking drugs Normal potassium Normal TSH History of hypertension Suggest I did detailed discussion with the patient I would recommend a dual-chamber pacemaker implantation for symptomatic sick sinus syndrome with severe daytime bradycardia No reversible causes evident Patient agreed with the plan Dual-chamber pacemaker implantation on Monday
--- NOTE | 2023-03-19 17:27 | P.PN ---
Subjective Progress Note Date: 03/19/23 82-year-old female patient of Dr. 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 We have been asked to evaluate the patient for bradycardia. Patient was last seen in the office on 02/27 there is concern about her blood pressure control with fluctuating readings. At that time, she was in a sinus rhythm and instructed to continue her current medications area patient has been monitoring her blood pressure very closely at home and noticed that her heart rate was at 40. This happened a few days ago and then again she was feeling dizzy and her heart rate was at 40 she ended up going to bed in the morn ing she checked it again and it was 40. While talking on the patient her heart rate goes up to 55. Patient was ambulated in the hallway in the emergency center and her heart rate went up to 75 with activity. She states she has a follow-up appointment with Dr. rice on Monday. EKG sinus bradycardia, telemetry sinus bradycardia Chest x-ray: No acute process WBC 9, hemoglobin 9.6, platelet count 201. INR 0.9. BUN 44 creatinine 1.62 with baseline of 1.3. Troponin negative 3. Liver function tests are normal Home cardiac medications: Valsartan 160 mg daily, Lasix 40 mg daily as needed Echocardiogram 06/2022: Normal EF, mild MS, mild AR, mild MR, mild Lexiscan stress test 05/2022 normal 03/19/2023 Patient is seen and evaluated sitting up in bedside chair; denies any specific complaints - Vital signs are reviewed and remained stable - Patient is being evaluated by cardiology and recurrent dizzy spells/syncopal spells are deemed secondary to sick sinus syndrome - Cardiology recommending dual chamber pacemaker implant for sick sinus syndrome with severe daytime bradycardia -- Patient is agreeable to above Recommendation and is scheduled for dual-chambe r pacemaker implantation tomorrow morning Objective - Vital Signs Vital signs: Vital Signs Temp 98.7 F 03/19/23 09:30 Pulse 56 L 03/19/23 09:30 Resp 16 03/19/23 09:30 BP 115/72 03/19/23 09:30 Pulse Ox 98 03/19/23 10:04 FiO2 Intake & Output 03/18/23 03/19/23 03/19/23 18:59 06:59 18:59 Intake Total 840 600 Balance 840 600 Intake: Oral 840 600 Other: Voiding Method Toilet Toilet # Voids 3 1 - Exam GENERAL: The patient is alert and oriented x3, not in any acute distress. Well developed, well nourished. HEENT: Pupils are round and equally reacting to light. EOMI. No scleral icterus. No conjunctival pallor. Normocephalic, atraumatic. No pharyngeal erythema. No thyromegaly. CARDIOVASCULAR: S1 and S2 present. No murmurs, rubs, or gallops. PULMONARY: Chest is clear to auscultation, no wheezing or crackles. ABDOMEN: Soft, nontender, nondistended, normoactive bowel sounds. No palpable organomegaly. MUSCULOSKELETAL: No joint swelling or deformity. EXTREMITIES: No cyanosis, clubbing, or pedal edema. NEUROLOGICAL: Gross neurological examination did not reveal any focal deficits. SKIN: No rashes. - Labs CBC & Chem 7: 03/18/23 11:53 03/18/23 11:53 Assessment and Plan Assessment: 1. Bradycardia; symptomatic/ Sick sinus syndrome - Patient's heart rate dipping down in 30 on the monitor; plan is to admit patient to telemetry; monitor EKG and trend troponin - 2-D echo is ordered - We will check thyroid profile 2. Hypertension; Diovan 160 mg daily 3. Valvular heart disease; aortic and mitral stenosis with regurgitation; patient takes Lasix 40 mg daily as needed 4. Diabetes mellitus by history; currently not on any medication; we will monitor Accu-Cheks every before meals and at bedtime with sliding scale as needed 5. Seasonal ALLERGIES; clinically stable DVT prophylaxis; SCDs CODE STATUS; full code
[2023-03-19 20:14] LABS: Glucose,Whole Blood 110 mg/dL (70-110)
[2023-03-20] MEDS ORDERED: DEXTROSE 50% SYRINGE 50 ML IVP PRN ×2 (00:59)
[2023-03-20] MEDS: NITROGLYCERIN OINT 1 INCH/GM PACKET TOPICAL SCH ×4 (01:36→17:25)
[2023-03-20] MEDS ORDERED: VANCOMYCIN 1,250 MG in SODIUM CHLORIDE 0.9% 250 ML IVPB ONE (04:00)
[2023-03-20] MEDS: VALSARTAN 160 MG TAB PO SCH (06:02)
[2023-03-20 06:27] LABS: Glucose,Whole Blood 111 mg/dL (70-110)
[2023-03-20] MEDS ORDERED: CLINDAMYCIN 900 MG in DEXTROSE 5% IN WATER 50 ML IVPB PRN ×2 (07:00)
[2023-03-20] MEDS ORDERED: CLINDAMYCIN 600 MG in SODIUM CHLORIDE 0.9% IRRIG BTL 250 ML IRRIGATION ONE (07:00)
[2023-03-20] MEDS ORDERED: SODIUM CHLORIDE 0.9% 250 ML IV ONE (07:05)
[2023-03-20] MEDS ORDERED: IOPAMIDOL-370 100ML BTL INJ ONE (07:15)
[2023-03-20 07:24] LABS: Anisocytosis Slight; Basophils % (A) 0 %; Eosinophils # (A) 0.3 k/uL (0-0.7); Eosinophils % (A) 5 %; HCT 28.7 % (34.0-46.0); HGB 8.4 gm/dL (11.4-16.0); Hypochromasia Marked; Lymphocytes # (A) 1.3 k/uL (1.0-4.8); Lymphocytes % (A) 23 %; MCH 22.7 pg (25.0-35.0); MCHC 29.3 g/dL (31.0-37.0); MCV 77.5 fL (80.0-100.0); Mean Platelet Volume 9.3; Microcytosis Slight; Monocytes # (A) 0.3 k/uL (0-1.0); Monocytes % (A) 5 %; Neutrophils # (A) 3.7 k/uL (1.3-7.7); Neutrophils % (A) 64 %; Platelet Count 180 k/uL (150-450); RDW 16.7 % (11.5-15.5); WBC 5.8 k/uL (3.8-10.6)
[2023-03-20] MEDS ORDERED: LIDOCAINE 1% INJ 10MG/ML (20 ML MDV) ONE ×2 (07:26→07:36)
[2023-03-20] MEDS ORDERED: fentaNYL (PF) 50 MCG/ML 2 ML AMP ONE (07:28)
[2023-03-20] MEDS ORDERED: fentaNYL (PF) 50 MCG/ML 2 ML AMP IV ONE (07:29)
[2023-03-20] MEDS ORDERED: LIDOCAINE 1% INJ 10MG/ML (30 ML VIAL-PF) SQ ONE ×3 (07:30→07:31)
[2023-03-20] MEDS ORDERED: LIDOCAINE 1% INJ 10MG/ML (20 ML MDV) SQ ONE (07:35)
[2023-03-20] MEDS ORDERED: MIDAZOLAM 2 MG/2 ML VIAL IV ONE (07:35)
[2023-03-20 07:42] LABS: Calcium 8.6 mg/dL (8.4-10.2); Potassium 4.3 mmol/L (3.5-5.1)
--- NOTE | 2023-03-20 08:26 | P.PN ---
Progress Note - Text Successful dual-chamber pacemaker implantation for symptomatic sick sinus syndrome with resting heart rates in the 30s during the day No reversible causes Dual-chamber [employer] device placed Programmed [id number] 60 to 1:30 bpm Increase valsartan to 160 mg in the morning and 80 mg in the evening IV antibiotics Chest x-ray tomorrow Device interrogation tomorrow Likely home discharge tomorrow Patient will need home health for a few weeks Follow up in the device clinic in one week Follow Dr. Lebron in 4 weeks
[2023-03-20] MEDS: SODIUM CHLORIDE 0.9% 1,000 ML IV SCH ×3 (09:46→11:51)
[2023-03-20] MEDS: INSULIN ASPART (NovoLOG) 100 UNIT/ML VIAL SQ SCH ×4 (09:47→21:36)
[2023-03-20 11:46] LABS: Glucose,Whole Blood 101 mg/dL (70-110)
[2023-03-20] MEDS: ACETAMINOPHEN TAB 325 MG TAB PO PRN ×2 (11:51→21:41)
[2023-03-20] MEDS: ASPIRIN 325 MG TAB PO SCH (11:51)
--- NOTE | 2023-03-20 12:56 | P.PN ---
Subjective 82-year-old female patient of Dr. 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 We have been asked to evaluate the patient for bradycardia. Patient was last seen in the office on 02/27 there is concern about her blood pressure control with fluctuating readings. At that time, she was in a sinus rhythm and instructed to continue her current medications area patient has been monitoring her blood pressure very closely at home and noticed that her heart rate was at 40. This happened a few days ago and then again she was feeling dizzy and her heart rate was at 40 she ended up going to bed in the morning she checked it again and it was 40. While talking on the patient her heart rate goes up to 55. Patient was ambulated in the hallway in the emergency center and her heart rate went up to 75 with activity. She states she has a follow-up appointment with Dr. rice on Monday. EKG sinus bradycardia, telemetry sinus bradycardia Chest x-ray: No acute process WBC 9, hemoglobin 9.6, platelet count 201. INR 0.9. BUN 44 creatinine 1.62 with baseline of 1.3. Troponin negative 3. Liver function tests are normal Home cardiac medications: Valsartan 160 mg daily, Lasix 40 mg daily as needed Echocardiogram 06/2022: Normal EF, mild MS, mild AR, mild MR, mild Lexiscan stress test 05/2022 normal 03/19/2023 Patient is seen and evaluated sitting up in bedside chair; denies any specific complaints - Vital signs are reviewed and remained stable - Patient is being evaluated by cardiology and recurrent dizzy spells/syncopal spells are deemed secondary to sick sinus syndrome - Cardiology recommending dual chamber pacemaker implant for sick sinus syndrome with severe daytime bradycardia -- Patient is agreeable to above Recommendation and is scheduled for dual- chamber pacemaker implantation tomorrow morning 03/20/2023 Patient is status post pacemaker placement today. After the procedure she was lying in bed feeling comfortable, little pressure at the pacemaker site which is expected. No chest pain or dyspnea No other complaints. No lightheadedness or dizziness Heart rate improved to 55 Creatinine is stable at baseline of 1.3 for her chronic kidney disease Possible discharge in 24 hours while she remains stable and cleared by hydroelectric station chief tomorrow, discussed with patient and family at bedside and they're agreeable Objective - Vital Signs Vital signs: Vital Signs Temp 98.8 F 03/20/23 04:00 Pulse 85 03/20/23 04:00 Resp 16 03/20/23 04:00 BP 129/81 03/20/23 04:00 Pulse Ox 98 03/20/23 04:00 FiO2 Intake & Output 03/19/23 03/20/23 03/20/23 18:59 06:59 18:59 Intake Total 840 56 Balance 840 56 Intake: IV 56 Oral 840 Other: Voiding Method Toilet # Voids 1 2 1 - Exam GENERAL: The patient is alert and oriented x3, not in any acute distress. Well developed, well nourished. HEENT: Pupils are round and equally reacting to light. EOMI. No scleral icterus. No conjunctival pallor. Normocephalic, atraumatic. No pharyngeal erythema. No thyromegaly. CARDIOVASCULAR: S1 and S2 present. No murmurs, rubs, or gallops. PULMONARY: Chest is clear to auscultation, no wheezing or crackles. ABDOMEN: Soft, nontender, nondistended, normoactive bowel sounds. No palpable organomegaly. MUSCULOSKELETAL: No joint swelling or deformity. EXTREMITIES: No cyanosis, clubbing, or pedal edema. NEUROLOGICAL: Gross neurological examination did not reveal any focal deficits. SKIN: No rashes. no petechiae. - Labs CBC & Chem 7: 03/20/23 05:47 03/20/23 05:47 Labs: Abnormal Lab Results - Last 24 Hours (Table) 03/20/23 03/20/23 03/20/23 Range/Units 05:47 05:47 06:25 RBC 3.70 L (3.80-5.40) m/uL Hgb 8.4 L (11.4-16.0) gm/dL Hct 28.7 L (34.0-46.0) % MCV 77.5 L (80.0-100.0) fL MCH 22.7 L (25.0-35.0) pg MCHC 29.3 L (31.0-37.0) g/dL RDW 16.7 H (11.5-15.5) % Chloride 111 H (98-107) mmol/L BUN 32 H (7-17) mg/dL Creatinine 1.38 H (0.52-1.04) mg/dL Glucose 100 H (74-99) mg/dL POC Glucose (mg/dL) 111 H (70-110) mg/dL Assessment and Plan Assessment: 1. Bradycardia; symptomatic/ Sick sinus syndrome, status post permanent pacemaker -Monitor for another 24 hours and it was cleared by hydroelectric station chief 2. Hypertension; Diovan 160 mg daily 3. Valvular heart disease; aortic and mitral stenosis with regurgitation; patient takes Lasix 40 mg daily as needed 4. Diabetes mellitus by history; currently not on any medication; we will m onitor Accu-Cheks every before meals and at bedtime with sliding scale as needed 5. Seasonal ALLERGIES; clinically stable DVT prophylaxis; SCDs CODE STATUS; full code
--- NOTE | 2023-03-20 14:27 | P.EPPROC ---
- EP Procedure Note Electrophysiology Procedure Note: Diagnosis Symptomatic bradycardia secondary to sick sinus syndrome Recurrent dizzy spells and feeling of weakness with sudden bradycardia documented on telemetry Sinus bradycardia in the mid 30s, that occurs abruptly No triggering or exacerbating factors, normal TSH normal electrolytes, no i ncriminating medications on board Procedure Dual-chamber pacemaker implantation Left upper extremity venogram Details Patient was brought to the EP lab in a fasting state. Written informed consent was obtained prior to the procedure. Conscious sedation provided. Left upper extremity venogram performed. 15 mL IV dye injected. Patent left subclavian and axillary venous system IV antibiotics administered. Local anesthesia administered. A 4 cm incision made in the pectoral area. Subfascial pocket made. Venous accesses obtained Venous sheaths placed. Leads placed in the right heart Atrial lead position the right atrial appendage. Medtronic model #4574, 53 cm passive lead placed in the right atrial appendage P waves 2 mV pacing impedance 722 ohms and pacing threshold 0.8 V at 0.4 ms RV lead position in the RV apex. Medtronic passive lead placed in the RV apex, 58 cm length Model #4074 Pacing threshold 0.8 V at 0.4 ms, R waves 12 mV and pacing impedance 1159 High output test negative Device promotions team leader, Medtronic DANNY XT DR MRI Dual-chamber pacemaker device connected to the leads and placed in the subfascial pocket Patient tolerated the procedure well without acute complications Pacemaker programming AAIR-DDDR 60-130 ppm Mode switch ON Patient underwent EP procedure under conscious sedation/moderate sedation, monitoring of the level of consciousness and physiologic parameters including but not limited to vital signs and oxygenation. Patient tolerated the procedure well without any acute complications. Start time: 7:30 Stop time: 820
[2023-03-20 16:57] LABS: Glucose,Whole Blood 101 mg/dL (70-110)
[2023-03-20] MEDS ORDERED: VALSARTAN 80 MG TAB PO SCH (20:00)
[2023-03-21] MEDS: NITROGLYCERIN OINT 1 INCH/GM PACKET TOPICAL SCH ×3 (02:07→11:38)
[2023-03-21 06:06] LABS: Glucose,Whole Blood 103 mg/dL (70-110)
[2023-03-21] MEDS: SODIUM CHLORIDE 0.9% 1,000 ML IV SCH ×2 (06:30→06:32)
[2023-03-21] MEDS: INSULIN ASPART (NovoLOG) 100 UNIT/ML VIAL SQ SCH ×2 (06:39→11:38)
--- NOTE | 2023-03-21 08:41 | XR ---
EXAMINATION TYPE: XR chest 2V DATE OF EXAM: 03/21/2023 COMPARISON: 03/16/2023 TECHNIQUE: PA and lateral views submitted. HISTORY: Lead placement check FINDINGS: The lungs are clear and there is no pneumothorax, pleural effusion, or focal pneumonia. Heart size normal and no overt failure. Osseous structures demonstrate hypertrophic and degenerative changes of the spine. A double lead cardiac device is seen in the proximal lead overlying the right atrium and t he distal lead overlying the right ventricle. Limited inspiration with coarsened interstitium. Arthro antolin of the shoulders. IMPRESSION: 1. Cardiac device with no evidence of pneumothorax..
--- NOTE | 2023-03-21 09:31 | CDI ---
Documentation Clarification Form Date: 03/21/2023 8:05:18 AM From: Rhina Cole RN, CCDS Admit Date: 03/16/2023 7:01:00 PM Patient Name: Norma Rodriguez Visit Number: [id number] Discharge Date: ATTENTION: The Clinical Documentation Specialists (CDI) and [facility] Coding Staff appreciate your assistance in clarifying documentation. Please respond to the clarification below the line at the bottom and electronically sign. The CDI & [facility] Coding staff will review the response and follow-up if needed. Please note: Queries are made part of the Legal Health Record. If you have any questions, please contact the author of this message via ITS. Dr. Corbin E Sheet Unspecified CKD is documented [insert date, location]. Additional clarification regarding the stage of CKD is requested. History/Risk Factors: Hypertension, Diabetes Mellitus, Valvular heart disease, Bardycardia Patients Historical Creatinine baseline 1.3 03/16 BUN 44 Cr 1.62 GFR 29 03/18 BUN 39 Cr 1.24 GFR 41 03/20 BUN 32 Cr 1.38 GFR 36 Clinical Indicators: 82year -old female present with heart rate at 40, ruled in for bradycardia; symptomatic, with sick sinus syndrome. The progress note have creatinine is stable at baseline of 1.3 for her chronic kidney disease. Creatinine on admission was 1.62. Treatment: Monitor Labs, BUN, CR, Lytes per orders Is there an additional diagnosis that is appropriate for this patient and further clarify the stage of the CKD, if known: [ ] Acute Kidney Injury with Chronic Kidney disease (specify stage) [ ] CKD Stage 2 (GFR 60-89) [ ] CKD Stage 3 (GFR 30-59) [ ] CKD Stage 3a (GFR 45-59) [ ] CKD Stage 3b (GFR 30-44) ] Other, please specify [ ] Unable to determine (Template Last revised: December 2020) CKD Stage 3 (GFR 30-59) MTDD
[2023-03-21] MEDS: ASPIRIN 325 MG TAB PO SCH (09:56)
[2023-03-21] MEDS: ACETAMINOPHEN TAB 325 MG TAB PO PRN (09:56)
[2023-03-21] MEDS: VALSARTAN 160 MG TAB PO SCH (09:58)
[2023-03-21 10:19] VITALS: PULSE 60; RESP 16
--- NOTE | 2023-03-21 11:22 | P.PN ---
Subjective Progress Note Date: 03/21/23 HISTORY OF PRESENT ILLNESS: This is an 82-year-old female who underwent dual-chamber pacemaker implantation yesterday with Dr. Hernandez secondary to symptomatic bradycardia secondary to sick sinus syndrome with heart rates in the 30s. Patient examined this morning at the bedside. Patient denies chest pain or pressure. She denies shortness of breath. Pacemaker implantation site with dressing present. Patient with left arm in a sling. Her vitals are stable. Chest x-ray completed without evidence of pneumothorax. Her device interrogation is currently pending. PHYSICAL EXAM: VITAL SIGNS: Reviewed. GENERAL: Well-developed in no acute distress. NECK: Supple. No JVD or thyromegaly LUNGS: Respirations even and unlabored. Lungs essentially clear to auscultation bilaterally. HEART: Regular rate and rhythm. S1 and S2 heard. EXTREMITIES: Normal range of motion. No clubbing or cyanosis. Peripheral pulses intact. No lower extremity edema ASSESSMENT: Symptomatic bradycardia Sick sinus syndrome, status post Medtronic dual-chamber pacemaker implantation PLAN: Await device interrogation Continue current cardiac medications Patient may be discharged home this afternoon pending pacemaker interrogation Patient is to follow up outpatient with Dr. Lebron Nurse practitioner note has been reviewed by physician. Signing provider agrees with the documented findings, assessment, and plan of care. Objective - Vital Signs Vital signs: Vital Signs Temp 98.6 F 03/21/23 08:55 Pulse 60 03/21/23 08:55 Resp 16 03/21/23 08:55 BP 162/75 03/21/23 08:55 Pulse Ox 99 03/21/23 08:55 FiO2 Intake & Output 03/20/23 03/21/23 03/21/23 18:59 06:59 18:59 Intake Total 536 300 240 Balance 536 300 240 Intake: IV 56 Oral 480 300 240 Other: Voiding Method Toilet Toilet Toilet # Voids 1 3 - Labs CBC & Chem 7: 03/20/23 05:47 03/20/23 05:47
[2023-03-21 11:39] LABS: Glucose,Whole Blood 113 mg/dL (70-110)
[2023-03-21 11:44] VITALS: BP 153/64; TEMP 98.3
[2023-03-21 12:37] LABS: Glucose,Whole Blood 92 mg/dL (70-110)
[2023-03-21 12:55] VITALS: BMI 32.8
[2023-03-21] MEDS ORDERED: amLODIPine 2.5 MG TAB PO SCH (14:00)
--- NOTE | 2023-03-24 12:45 | P.DS ---
Providers Date of admission: 03/16/23 19:01 Attending physician: Fer Arguello Consults: 03/16/23 18:59 Consult Physician Urgent Consulting Provider: [facility] Consult Reason/Comments: Bradycardia Do you want consulting provider notified?: Yes Primary care physician: Zachariah Montgomery Hospital Course: Diagnoses: 1. Bradycardia; symptomatic/ Sick sinus syndrome, status post permanent pacemaker 2. Hypertension; Diovan 160 mg daily, then 80 mg extra dose at night added by supervisor blast furnace auxiliaries and pt tolerated that well upon discharge 3. Valvular heart disease; aortic and mitral stenosis with regurgitation 4. Diabetes mellitus by history; currently not on any medication; 5. Seasonal ALLERGIES; clinically stable Hospital course: 82-year-old female patient of Dr. 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 We have been asked to evaluate the patient for bradycardia. Patient was last seen in the office on 02/27 there is concern about her blood pressure control with fluctuating readings. Patient was noted to be bradycardic down to 30s by supervisor blast furnace auxiliaries secondary to sick sinus syndrome she underwent pacemaker placement and tolerated the procedure well. Postprocedure her heart rate is stable and normal range. She remains asymptomatic and she wants to go home today. No chest pain dyspnea, no change in urine or bowel habits. No fever. Aspirin started on admission was discontinued by supervisor blast furnace auxiliaries later on. She was taken Diovan 160 mg daily and 80 mg At bedtime dose was admitted and patient tolerated that well Patient was cleared for discharge by supervisor blast furnace auxiliaries Problems and management plan were discussed with the patient and he verbalized understanding and acceptance Patient was found stable and can be discharged home in guarded prognosis however he needs follow-up as an outpatient. Patient was instructed to follow up with PCP Dr. Montgomery within one week and patient agrees with the appointments made for her on 03/23 said she will follow-up Patient also instructed to follow up with supervisor blast furnace auxiliaries Dr. Lebron in one week and she agrees to follow Physical exam Gen: patient is a AAOx3, no distress CVS: S1-S2, RRR, no murmur Lungs: B/L CTA, no wheezing Abdomen: soft, no distention, no tenderness, positive bowel sounds Extremity: no leg edema or induration Time spent more than 35 minutes Plan - Discharge Summary Discharge Rx Participant: Yes New Discharge Prescriptions: New Valsartan [Diovan] 80 mg PO HS #30 tab Continue Valsartan [Diovan] 160 mg PO DAILY #30 tab Discontinued Furosemide [Lasix] 40 mg PO DAILY PRN PRN Reason: Edema Naproxen Sodium [Aleve] 220 mg PO BID PRN PRN Reason: Pain Discharge Medication List Valsartan [Diovan] 80 mg PO HS #30 tab 03/21/23 [Rx] Valsartan [Diovan] 160 mg PO DAILY #30 tab 03/21/23 [Rx] Follow up Appointment(s)/Referral(s): Zachariah Montgomery MD [Primary Care Provider] - 03/23/23 11:10 am (MONDAY we recommend to check your blood tests with your doctor ) Mesfin Lebron MD [STAFF PHYSICIAN] - 03/29/23 10:30 am (03/29/23 for device check with RN Appointment with Dr. Lebron on 04/05/23 at 1500) [facility] [NON-STAFF] - Ambulatory/Diagnostic Orders: Basic Metabolic Panel [LAB.AMB] Time Frame: 3 Days, Location: None Selected Patient Instructions/Handouts: Bradycardia (DC), Pacemaker (DC) Activity/Diet/Wound Care/Special Instructions: PATIENT EDUCATION MATERIAL Instructions following a heart rhythm device implant. 1. Keep dressing DRY for 5 DAYS. You may cover the area with Saran or Cling Wrap, prior to a shower. 2. The dressing will be removed in the Device Clinic at [facility]. Absorbable sutures were used to close the wound. 3. Avoid raising the left arm above the shoulder level. 4 week restriction 4. Avoid arm movements, like backscratching, rubbing the head, or pulling on a cord. 4 weeks restriction 5. Gentle range of motion movements of the shoulder, closest to the incision should be performed to avoid a frozen shoulder. (Pendulum exercises of the shoulder) 6. The opposite arm may be used freely. 7. Avoid driving for 7 days. 8. Avoid activities such as golfing, swimming, weed whacking, lifting more than 10 pounds weight, bowling, gymnastics and weight training/lifting. (6 weeks restriction) 9. Activities such as wood chopping with an axe, pull-ups in the gymnasium, power lifting, arc-welding, being close to home induction cooktops will always be a problem. 10. Arm sling is only a reminder not to raise the arm above the head. You do not need to keep the arm completely immobilized. Your free to move the arm and use it and for normal activities. In case of any problems, please call [facility], Munir Napier, @ [phone], Attention: Device Clinic Device clinic follow-up in 5 days Follow-up with primary supervisor blast furnace auxiliaries in 1 months Discharge Disposition: HOME SELF-CARE
== END 2023-03-21 15:08 | disposition home or self-care (01) | DRG 244 ==
LOC: EC 16:03 → 3SCARD 19:01
PROVIDERS: ADMIT Hospitalist; ATTEND Hospitalist
PROC: 02H63JZ Insertion of Pacemaker Lead into Right Atrium, Percutaneous Approach (ICD-10-PCS; 2023-03-20)
PROC: 02HK3JZ Insertion of Pacemaker Lead into Right Ventricle, Percutaneous Approach (ICD-10-PCS; 2023-03-20)
PROC: 0JH606Z Insertion of Pacemaker, Dual Chamber into Chest Subcutaneous Tissue and Fascia, Open Approach (ICD-10-PCS; principal; 2023-03-20 10:50)
DX: I49.5 Sick sinus syndrome (principal); E11.22 Type 2 diabetes mellitus with diabetic chronic kidney disease; M35.3 Polymyalgia rheumatica; I12.9 Hypertensive chronic kidney disease with stage 1 through stage 4 chronic kidney disease, or unspecified chronic kidney disease; N18.30 Chronic kidney disease, stage 3 unspecified; J30.2 Other seasonal allergic rhinitis; Z88.0 Allergy status to penicillin; Z88.2 Allergy status to sulfonamides; Z88.1 Allergy status to other antibiotic agents; Z88.8 Allergy status to other drugs, medicaments and biological substances; Z79.899 Other long term (current) drug therapy; Z82.49 Family history of ischemic heart disease and other diseases of the circulatory system; Z28.311 Partially vaccinated for COVID-19; Z87.891 Personal history of nicotine dependence
CPT/HCPCS: 33208; 36415; 71046; 80048; 80053; 80061; 83036; 84443; 84484; 85025; 85610; 85730; 93005; 93306; 94760; 99285

== ENCOUNTER → 2023-03-23 | Outpatient (CLI) | payer MEDICARE ==
--- NOTE | 2023-03-23 13:36 | US ---
EXAMINATION TYPE: US venous doppler duplex LE DATE OF EXAM: 03/23/2023 1:21 PM COMPARISON: NONE CLINICAL INDICATION: Female, 82 years old with history of R60.0 EDEMA; Bilateral leg edema per patien t. No redness or swelling. Not on blood thinners. Patient states she normally takes Lasix but hasn 't. Recent pacemaker placement. SIDE PERFORMED: Bilateral TECHNIQUE: The lower extremity deep venous system is examined utilizing real time linear array sonog ambrocio with graded compression, doppler sonography and color-flow sonography. FINDINGS: VESSELS IMAGED: Common Femoral Vein Deep Femoral Vein Greater Saphenous Vein * Femoral Vein Popliteal Vein Small Saphenous Vein * Proximal Calf Veins (* superficial vessels) Right Leg: Negative for DVT Left Leg: Negative for DVT. Fluid collection posterior knee= 5.7 x 3.3 x 1.0 cm IMPRESSION: 1. No evidence for DVT within the bilateral lower extremities imaged from the groin to the upper calf . 2. A small to moderate-sized 5.7 x 3.3 cm Back cyst on the left containing some chronic synovial thi ckening and debris.
== END | disposition home or self-care (01) ==
LOC: RADUSWWP 12:30
PROVIDERS: ATTEND Family Medicine
DX: M71.22 Synovial cyst of popliteal space [Baker], left knee (principal); R60.0 Localized edema
CPT/HCPCS: 93970

== ENCOUNTER 2023-05-04 06:02 | Day surgery (SDC) | payer MEDICARE ==
[2023-05-02 12:11] VITALS: BMI 33.6
[2023-05-04] MEDS ORDERED: SODIUM CHLORIDE 0.9% 1,000 ML IV SCH (06:06)
[2023-05-04] MEDS ORDERED: SODIUM CHLORIDE 0.9% 500 ML 500 ML IV ONE (06:29)
[2023-05-04 07:00] VITALS: BP 129/62; PULSE 71; RESP 16; TEMP 98.7
[2023-05-04 07:16] LABS: African American GFR (CKD) 49 (>60 ml/min/1.73 sqM); Anion Gap 7 mmol/L; Blood Urea Nitrogen 42 mg/dL (7-17); Calcium 8.7 mg/dL (8.4-10.2); Carbon Dioxide 23 mmol/L (22-30); Chloride 108 mmol/L (98-107); Glucose 115 mg/dL (74-99); Non-African American GFR(CKD) 42 (>60 ml/min/1.73 sqM); Potassium 4.4 mmol/L (3.5-5.1); Sodium 138 mmol/L (137-145)
[2023-05-04] MEDS ORDERED: IOPAMIDOL-370 100ML BTL INJ ONE (07:24)
--- NOTE | 2023-05-22 07:30 | P.EPPROC ---
- EP Procedure Note Electrophysiology Procedure Note: Diagnosis High atrial lead thresholds Dual-chamber pacemaker implanted for months back Left upper extremity venogram 15 mL IV dye injected into the left arm Patent left axillary vein and subclavian vein Cinefluoroscopy of the leads in multiple angles revealed excellent and stable right atrial lead position The right atrial lead was in the right atrial appendage with good motion on cinefluoroscopy Adequate heel RV lead in stable position, with loss of heel in the right atrium but leads still in good position in the right ventricle No fractures or breaks Impression Patent left subclavian vein Cinefluoroscopy of the leads, Plan No intervention at this time Atrial lead is in excellent position
== END 2023-05-04 08:16 | disposition home or self-care (01) ==
LOC: CATHEP 06:02
PROVIDERS: ATTEND Internal Medicine Clinical Cardiac Electrophysiology
DX: T85.111A Breakdown (mechanical) of implanted electronic neurostimulator of peripheral nerve electrode (lead), initial encounter (principal); I10 Essential (primary) hypertension; I35.1 Nonrheumatic aortic (valve) insufficiency; Z95.0 Presence of cardiac pacemaker; E11.9 Type 2 diabetes mellitus without complications; Z88.0 Allergy status to penicillin; Z88.1 Allergy status to other antibiotic agents; Z88.6 Allergy status to analgesic agent; Z88.2 Allergy status to sulfonamides; Z79.899 Other long term (current) drug therapy
CPT/HCPCS: 36005; 75820; 80048; Q9967

== ENCOUNTER → 2023-06-15 | Outpatient (CLI) | payer MEDICARE ==
--- NOTE | 2023-06-16 07:51 | US ---
EXAMINATION TYPE: US kidneys/renal and bladder DATE OF EXAM: 06/15/2023 COMPARISON: US CLINICAL INDICATION: Female, 82 years old with history of N28.1 CYST OF KIDNEY, ACQUIRED; EXAM MEASUREMENTS: Right Kidney: 10.3 x 4.8 x 5.0 cm Left Kidney: 9.8 x 4.8 x 4.1 cm Right Kidney: No evidence of hydro, multicystic with complex lesion lower pole with septations, incre ased in size when compared to prior= 2.4 x 2.4 x 1.8 cm Left Kidney: No evidence of hydro, multicystic, largest cyst mid= 1.2 x 1.2 x 1.5 cm Bladder: Pt unable to fill bladder to properly evaluate Bilateral Jets seen: No There is no evidence for hydronephrosis at this point in time. No nephrolithiasis is seen. No lytic masses are identified. The urinary bladder is anechoic. Bilateral ureteral jets are seen. IMPRESSION: 1. Complex lesion lower pole right kidney is increased in size when compared to prior study. Consider further workup D contrast CT and/or MRI.
== END | disposition home or self-care (01) ==
LOC: RADUSWWP 16:01
PROVIDERS: ATTEND Family Medicine
DX: N28.1 Cyst of kidney, acquired (principal)
CPT/HCPCS: 76770

== ENCOUNTER → 2023-06-27 | Outpatient (CLI) | payer MEDICARE ==
[2023-06-27 10:37] LABS: African American GFR (CKD) 56 (>60 ml/min/1.73 sqM); Blood Urea Nitrogen 24 mg/dL (7-17); Non-African American GFR(CKD) 49 (>60 ml/min/1.73 sqM)
--- NOTE | 2023-06-27 11:53 | CT ---
EXAMINATION TYPE: CT abdomen w con CT DLP: 1204 mGycm, Automated exposure control for dose reduction was used. DATE OF EXAM: 06/27/2023 11:06 AM COMPARISON: CT abdomen pelvis most recent from 08/01/2019, renal ultrasound 06/15/2023 . CLINICAL INDICATION:Female, 83 years old with history of N28.1 CYST OF KIDNEY; Renal cyst TECHNIQUE: Multiphase CT of the abdomen following the administration of 100 cc of Isovue 300 IV cont rast material and oral contrast. Coronal and sagittal reformats were performed. FINDINGS: LOWER CHEST: Linear reticular scarring within the left lung base redemonstrated. Mitral anus calcific ations. Cardiac pacemaking leads identified. ABDOMEN LIVER: Unremarkable GALLBLADDER AND BILE DUCTS: The gallbladder is surgically absent. PANCREAS: Unremarkable. SPLEEN: Unremarkable. ADRENAL GLANDS: Unremarkable. KIDNEYS AND URETERS: No evidence of hydronephrosis. No renal calculi. Cortical thinning of both kidne ys with mild atrophy of the left kidney. Redemonstration of right inferior pole hyperdense 2.5 cm les ion. This is increased in size from prior CT in 2019 when it measured 2.0 cm. This demonstrates a Luis Alberto nsfield unit of 66 without significant washout on the delayed phase. Additional bilateral cortical hy podense foci which are too small to characterize. STOMACH AND BOWEL: Small hiatal hernia. Postsurgical changes of the proximal stomach. Enteric contras t reaches the mid small bowel. No evidence of bowel obstruction. PERITONEUM: No evidence of pneumoperitoneum or free fluid. VASCULATURE: Moderate atherosclerotic calcifications are present throughout the abdominal aorta and i ts branches. No evidence of aortic aneurysm. MUSCULOSKELETAL: No acute osseous abnormalities. Moderate disc degeneration changes are present throu ghout the thoracolumbar spine. Grade 1 anterolisthesis of L4 on L5 without evidence of pars defects. LYMPH NODES: No gross evidence for lymphadenopathy. SOFT TISSUE/ABDOMINAL WALL: Post surgical changes of the anterior wall with hernia mesh. IMPRESSION: 1. Increased size of right renal lower pole 2.5 cm lesion which appears to demonstrate some enhancem ent from prior examination 2019 when it measured 2.0 cm. This raises concern for possible renal cell carcinoma. 2. Additional bilateral cortical subcentimeter hypodense foci which are too small to characterize and may represent cysts. 3. Findings suggestive of bilateral chronic medical renal disease.
== END | disposition home or self-care (01) ==
LOC: RADCTMAIN 09:49
PROVIDERS: ATTEND Family Medicine
DX: N28.1 Cyst of kidney, acquired (principal); N28.89 Other specified disorders of kidney and ureter; I10 Essential (primary) hypertension
CPT/HCPCS: 82565; 84520; 74160; 36415; Q9967

== ENCOUNTER → 2024-01-30 | Outpatient (CLI) | payer MEDICARE ==
[2024-01-30 14:07] LABS: African American GFR (CKD) 53 (>60 ml/min/1.73 sqM); Blood Urea Nitrogen 33 mg/dL (7-17); Non-African American GFR(CKD) 46 (>60 ml/min/1.73 sqM)
--- NOTE | 2024-01-30 15:04 | CT ---
EXAMINATION TYPE: CT abdomen wo/w con CT DLP: 1975 mGycm, Automated exposure control for dose reduction was used. DATE OF EXAM: 01/30/2024 2:29 PM COMPARISON: CT abdomen pelvis most recent from 06/27/2023 and 08/01/2019. 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 Contrast used:80 mL of Isovue 300 with IV Contrast, (none if empty) Oral contrast used: with Oral Contrast (none if empty) FINDINGS: LOWER CHEST: Left lower lobe somewhat spiculated 10 mm pulmonary nodule with groundglass hazy margins . Oral contrast is in the esophagus distally. There is focal outpouching of the esophagus just above the diaphragm. Suture seen in the distal esophagus and gastric lumen. Heart is mildly enlarged for size with cardiac conduction leads present. Mitral valve annular cusp pa tient's are present. ABDOMEN LIVER: Unremarkable GALLBLADDER AND BILE DUCTS: Gallbladder surgically absent. PANCREAS: Unremarkable. SPLEEN: Unremarkable. ADRENAL GLANDS: Unremarkable. KIDNEYS AND URETERS: No evidence of hydronephrosis or renal calculus. The ureters are unremarkable. Fat-containing lesion within the left kidney cortex measuring 7 mm suggested. Right renal hyperdense cysts compatible with paresis/hemorrhagic cyst measuring 11 mm. Right renal lesion measuring 27 mm demonstrates 52 Hounsfield units noncontrast imaging, 67 Hounsfiel d units postcontrast imaging and 62 Hounsfield units on delayed imaging. Previously measuring 25 mm a nd 06/27/2023 and 20 mm on 08/01/2019. PELVIS BLADDER: Unremarkable REPRODUCTIVE: Unremarkable. ABDOMEN & PELVIS STOMACH AND BOWEL: No evidence of bowel obstruction. PERITONEUM/RETROPERITONEUM: No evidence of pneumoperitoneum or free fluid. VASCULATURE: Moderate atherosclerotic calcifications are present throughout the abdominal aorta and i ts branches. No evidence of aortic aneurysm. MUSCULOSKELETAL: No acute osseous abnormalities LYMPH NODES: No gross evidence for lymphadenopathy. SOFT TISSUE/ABDOMINAL WALL: Anterior abdominal wall surgical anchors. IMPRESSION: 1. Right renal suspected mass with borderline enhancement may be minimally larger on today's exam th an 06/27/2023 and definitely larger from 08/01/2019 right measuring 20 mm. Findings could be confirmed with MRI renal mass protocol. 2. Suspicious left lower lung pulmonary nodule which has increased soft tissue component compared to 06/27/2023 and 08/01/2019. 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 Further w orkup recommended. 3. Esophageal reflux/dysmotility with layering oral contrast within the lower esophagus. 4. Epiphrenic esophageal diverticulum suggested. Possibly postsurgical given suture in the region.
== END | disposition home or self-care (01) ==
LOC: RADCTMAIN 13:04
PROVIDERS: ATTEND Urology
DX: D41.01 Neoplasm of uncertain behavior of right kidney (principal); K21.9 Gastro-esophageal reflux disease without esophagitis; K22.5 Diverticulum of esophagus, acquired
CPT/HCPCS: 82565; 84520; 74170; 36415; Q9967

== ENCOUNTER → 2024-06-20 | Outpatient (CLI) | payer MEDICARE ==
--- NOTE | 2024-07-14 09:15 | CT ---
Site ID [facility] Patient Norma Rodriguez S ID [id number] Age/Gender: 84Y, F Order # N/A Procedure CT CHEST WO CONTRAST Date 06/20/2024 11:25:00 AM EXAMINATION TYPE: CT chest wo con CT DLP: 494.60 mGycm, Automated exposure control for dose reduction was used. DATE OF EXAM: 06/26/2024 10:47 AM COMPARISON: CT chest 06/08/2018 CLINICAL INDICATION: Female, 84 year old with history of lung nodule, follow-up. TECHNIQUE: Multiple axial images were obtained through the chest without IV contrast. Lack of IV or o ral contrast limits evaluation of solid and hollow organ viscera. . Coronal and sagittal reformats re viewed. FINDINGS: LUNGS/ PLEURA: No pleural effusion or pneumothorax. Mild centrilobular emphysematous changes. Stable linear groundglass 8 millimeter opacity within the right midlung and direct least 2018 and considere d benign. More solid-appearing nodular opacity within the left lower lobe periphery measuring up to 8 .5 mm with surrounding groundglass opacity and adjacent pleural thickening (series 4, image 35). This is at a site of previously suggested pneumonitis. AIRWAY: Patent and unremarkable.. HEART: Size within normal limits. Moderate coronary arterial calcifications. Left chest wall tube actrachita d cardiac pacemaking device. Dense mitral annulus calcifications. Small aortic valvular calcification s. No pericardial effusion. MEDIASTINUM: No gross evidence of adenopathy. VASCULATURE: Atherosclerotic calcifications are present throughout the aorta and its branches. No th oracic aortic aneurysm. Dilated main pulmonary measuring up to 3.5 cm. MUSCULOSKELETAL: No acute osseous abnormalities. Mild to moderate multilevel degenerative disease. Mi ld retrolisthesis of T12 on L1 and L1 on L2. SOFT TISSUES/LYMPH NODES: Unremarkable. LOWER NECK: Macrocalcifications within the left thyroid lobe. 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 Small hiatal hernia. Post postchol ecystectomy changes. Cortical thinning of the visualized left kidney suggesting medical renal disease . Postsurgical changes of the anterior abdominal wall from hernia repair. IMPRESSION: 1. Indeterminate more solid appearing 8.5 mm nodular density within the left lower lobe. Follow-up C T chest in 3-6 months is recommended. 2. Mildly dilated main pulmonary artery which can be seen in setting of pulmonary arterial hypertens ion.
== END | disposition home or self-care (01) ==
LOC: RADCTMAIN 11:15
PROVIDERS: ATTEND Internal Medicine
DX: I28.8 Other diseases of pulmonary vessels (principal); J98.4 Other disorders of lung; R91.1 Solitary pulmonary nodule
CPT/HCPCS: 71250

== ENCOUNTER → 2024-08-09 | Outpatient (CLI) | payer MEDICARE ==
--- NOTE | 2024-08-12 14:36 | MM ---
Reason for Exam: Screening (asymptomatic). Last mammogram was performed 1 year(s) and 6 month(s) ago. Patient History: Menarche at age 14. First Full-Term at age 19. Hysterectomy at age 30. Postmenopausal. Risk Values: Judith 5 year model risk: 0.9%. NCI Lifetime model risk: 1.0%. Prior Study Comparison: 10/22/2018 Screening Mammogram, [facility]. 08/18/2020 Bilateral Screening Mammogram, [facility]. 02/21/2023 Bilateral MG 3D screening mammo w/cad, [facility]. Tissue Density: There are scattered areas of fibroglandular density. Findings: Analyzed By CAD. There is no suspicious group of microcalcifications or new suspicious mass in either breast. Overall Assessment: Negative, BI-RAD 1 Management: Screening Mammogram of both breasts in 1 year. . Patient should continue monthly self-breast exams. A clinical breast exam by your physician is recommended on an annual basis. This exam should not preclude additional follow-up of suspicious palpable abnormalities. Note on Judith scores and lifetime risk: 1. A Judith score greater than 3% is considered moderate risk. If this is the case, consider specialist referral to assess eligibility for a risk reducing agent. 2. If overall lifetime risk for the development of breast cancer is 20% or higher, the patient may qualify for future screening with alternating mammogram and breast MRI. [facility], , 08/12/2024 2:33 PM. Electronically signed and approved by: Kavon Avelar M.D. Radiologis
== END | disposition home or self-care (01) ==
LOC: RADMAMWWP 14:12
PROVIDERS: ATTEND Family Medicine
DX: Z12.31 Encounter for screening mammogram for malignant neoplasm of breast (principal)
CPT/HCPCS: 77063; 77067

== ENCOUNTER → 2024-08-23 | Outpatient (CLI) | payer MEDICARE ==
[2024-08-23 13:22] LABS: African American GFR (CKD) 46 (>60 ml/min/1.73 sqM); Blood Urea Nitrogen 43 mg/dL (7-17); Non-African American GFR(CKD) 40 (>60 ml/min/1.73 sqM)
--- NOTE | 2024-08-23 14:24 | CT ---
EXAMINATION TYPE: CT abdomen wo/w con CT DLP: 2078.6 mGycm, Automated exposure control for dose reduction was used. DATE OF EXAM: 08/23/2024 1:52 PM COMPARISON: CT abdomen 01/30/2024, 06/27/2023, 08/01/2019 CLINICAL INDICATION:Female, 84 years old with history of D41.01 RIGHT KIDNEY; Rt sided renal mass TECHNIQUE: Standard CT of the abdomen before and after the uneventful administration of 100 cc of I sovue-370 intravenously. Delayed imaging was obtained. Coronal and sagittal reformats were performed. FINDINGS: LOWER CHEST: Stable left peripheral lower lobe somewhat spiculated 8 mm pulmonary nodule with groundg lass hazy margins. Oral contrast is in the esophagus distally with a hernia. Suture seen in the dista l esophagus and gastric lumen. Heart is mildly enlarged for size with cardiac conduction leads present. Mitral valve annular cusp pa tient's are present. ABDOMEN LIVER: Unremarkable GALLBLADDER AND BILE DUCTS: Gallbladder surgically absent. No biliary duct dilatation. PANCREAS: Unremarkable. SPLEEN: Unremarkable. ADRENAL GLANDS: Unremarkable. KIDNEYS AND URETERS: No evidence of hydronephrosis. Punctate nonobstructive left renal calculi. The v isualized ureters are unremarkable. Fat-containing lesion within the left kidney cortex measuring 7 mm again suggested. Right renal hyperdense cysts compatible with proteinaceous/hemorrhagic cysts rede monstrated with one measuring 1.3 cm with a Hounsfield unit of 68 and noncontrast imaging, previously 67. Left lower pole 2.4 cm hyperdense lesion on noncontrast imaging with a Hounsfield unit of 45, pr eviously 52. Additional exophytic right posterior lateral 1.2 cm hyperdense lesion with a Hounsfield unit of 75, previously 62. Left lower pole anterior 1.2 cm hyperdense lesion on noncontrast imaging. No suspicious enhancing renal lesions. Contrast is demonstrated within both collecting systems on the delayed phase. STOMACH AND BOWEL: Postsurgical changes of the stomach with small hiatal hernia. Enteric contrast is reaching the mid small bowel. No focal wall thickening or surrounding inflammatory changes identified . Few scattered colonic diverticula of the ascending colon. No evidence of bowel obstruction. PERITONEUM/RETROPERITONEUM: No evidence of pneumoperitoneum or free fluid. VASCULATURE: Moderate atherosclerotic calcifications are present throughout the abdominal aorta and i ts branches. No evidence of aortic aneurysm. MUSCULOSKELETAL: No acute osseous abnormalities. Grade 1 anterolisthesis of L4 on L5. Mild retrolisth esis of T12 on L1 and L1 on L2 LYMPH NODES: No gross evidence for lymphadenopathy. SOFT TISSUE/ABDOMINAL WALL: Anterior abdominal wall surgical mesh anchors. IMPRESSION: 1. Stable right lower pole exophytic lesion with intrinsic increased signal and questionable enhance ment from most recent CT. May represent a proteinaceous/hemorrhagic cyst versus renal cell carcinoma versus other etiologies. However this is increased in size from prior CTs. Further evaluation with MR abdomen renal mass protocol is again recommended. Additional stable bilateral hyperdense renal lesio ns which are consistent with proteinaceous/hemorrhagic cysts. 2. Stable left lower lung pulmonary nodule from most recent CT but increased from prior CTs. Again r aises concern for primary lung malignancy. Continued surveillance versus PET/CT is recommended. 3. Esophageal reflux/dysmotility with layering oral contrast within the lower esophagus. [facility], , 08/23/2024 2:22 PM
== END | disposition home or self-care (01) ==
LOC: RADCTMAIN 12:44
PROVIDERS: ATTEND Urology
CPT/HCPCS: 36415; 74170; 82565; 84520

== ENCOUNTER 2024-10-22 10:06 | Emergency (ER) | payer MEDICARE ==
[2024-10-22 10:14] VITALS: TEMP 98.7
--- NOTE | 2024-10-22 10:53 | ED ---
Chest Pain HPI - General Chief Complaint: Chest Pain Stated Complaint: chest pain Time Seen by Provider: 10/22/24 10:24 Source: patient, RN notes reviewed Mode of arrival: ambulatory Limitations: no limitations - History of Present Illness Initial Comments: 84-year-old female presents emergency department chief complaint of left-sided chest pain. Patient states it was sudden onset yesterday did wax and wane. She states it was large amount of pressure and sharp pain she had to folic it hurt when she took a deep breath removed but denies any trauma no rashes states she has prior pacemaker no prior lung disease does have a history of hypertension. Patient denies any cough or cold-like symptoms no trauma no abdominal complaints. - Related Data Home Medications Medication Instructions Recorded Confirmed Famotidine 20 mg PO DAILY 10/22/24 10/22/24 Ferrous Sulfate [Feosol] 325 mg PO DAILY 10/22/24 10/22/24 Fexofenadine HCl [Shayna Allergy] 180 mg PO DAILY 10/22/24 10/22/24 Furosemide [Lasix] 40 mg PO BID 10/22/24 10/22/24 Magnesium Oxide [Mag-Ox] 400 mg PO DAILY 10/22/24 10/22/24 Mv-Min/Folic/Vit K/Lut/[id number] 1 tab PO DAILY 10/22/24 10/22/24 [Alive Women's 50 Plus Tablet] Omeprazole [PriLOSEC] 20 mg PO DAILY PRN 10/22/24 10/22/24 Previous Rx's Medication Instructions Recorded Valsartan [Diovan] 80 mg PO HS #30 tab 03/21/23 Valsartan [Diovan] 160 mg PO DAILY #30 tab 03/21/23 Allergies Allergy/AdvReac Type Severity Reaction Status Date / Time celecoxib [From Celebrex] Allergy Itching Verified 10/22/24 12:48 cephalexin [From Keflex] Allergy Itching Verified 10/22/24 12:48 ciprofloxacin [From Cipro] Allergy Itching Verified 10/22/24 12:48 ciprofloxacin HCl Allergy Itching Verified 10/22/24 12:48 [From Cipro] doxycycline Allergy Unknown Verified 10/22/24 12:48 Penicillins Allergy Itching/Nehemias Verified 10/22/24 12:48 h Sulfa (Sulfonamide Allergy Itching/Nehemias Verified 10/22/24 12:48 Antibiotics) h Iodinated Contrast Media AdvReac Rash/Hives Verified 10/22/24 13:26 Review of Systems ROS Statement: Those systems with pertinent positive or pertinent negative responses have been documented in the HPI. ROS Other: All systems not noted in ROS Statement are negative. EKG Findings - EKG Comments: EKG Findings:: EKG performed at 10: 23 sinus bradycardia rate 56 OH 175 QRS 114 QT/QTc 410/401 - EKG Results: EKG: interpreted by BONG Past Medical History Past Medical History: Hypertension Additional Past Medical History / Comment(s): Seasonal ALLERGIES with known ALLERGY to dogs and cats. POLYMYALGIA. NO LONGER DIABETIC FOR OVER 2 YEARS PER PT History of Any Multi-Drug Resistant Organisms: None Reported Past Surgical History: Adenoidectomy, Bariatric Surgery, Cholecystectomy, Hernia Repair, Hysterectomy, Pacemaker, Tonsillectomy Additional Past Surgical History / Comment(s): Partial hysterectomy, bilateral cataract removal and intraocular lens implants. COLONOSCOPY, EGD, HAD GASTRECTOMY Past Anesthesia/Blood Transfusion Reactions: No Reported Reaction Type of Cardiac Device: Biventricular Pacemaker Device Placement Date:: 03/21/23 Past Psychological History: No Psychological Hx Reported Smoking Status: Former smoker Past Alcohol Use History: None Reported Past Drug Use History: None Reported - Past Family History Mother Family Medical History: Coronary Artery Disease (CAD), Diabetes Mellitus, Hypertension, Myocardial Infarction ([place]) Additional Family Medical History / Comment(s): Mother at age 69 from myocardial infarction. Father Additional Family Medical History / Comment(s): Father at age 77 from myocardial infarction. He had a previous history of peripheral vascular disease status post multiple lower extremity amputations. Brother(s) Additional Family Medical History / Comment(s): Patient has 3 half-brothers. One shot himself at approximately age 80. 2 from myocardial infarctions in their 80s. Patient has 2 full brothers and both from lung cancer and brain cancer. Son(s) Additional Family Medical History / Comment(s): Patient has 5 children. One from a motor vehicle accident. One son has hypertension at age 48. One son suffers from gastroesophageal reflux disease. One daughter is healthy at age 57 and one daughter healthy at age 53. Sister(s) Additional Family Medical History / Comment(s): Patient had 2 half sisters one from myocardial infarction and one in a motor vehicle accident. General Exam Limitations: no limitations General appearance: alert, in no apparent distress Head exam: Present: atraumatic, normocephalic, normal inspection Eye exam: Present: normal appearance, PERRL, EOMI. Absent: scleral icterus, conjunctival injection, periorbital swelling ENT exam: Present: normal exam, normal oropharynx, mucous membranes moist Neck exam: Present: normal inspection, full ROM. Absent: tenderness, meningismus, lymphadenopathy Respiratory exam: Present: normal lung sounds bilaterally. Absent: respiratory distress, wheezes, rales, rhonchi, stridor Cardiovascular Exam: Present: normal rhythm, bradycardia, normal heart sounds. Absent: regular rate, systolic murmur, diastolic murmur, rubs, gallop, clicks GI/Abdominal exam: Present: soft, normal bowel sounds. Absent: distended, tenderness, guarding, rebound, rigid Course Vital Signs 10/22/24 10/22/24 10/22/24 10:10 12:20 13:24 Temperature 98.7 F Pulse Rate 67 54 L 58 L Respiratory 18 20 20 Rate Blood Pressure 178/89 154/77 166/67 O2 Sat by Pulse 98 99 99 Oximetry 10/22/24 14:44 Temperature Pulse Rate 58 L Respiratory 20 Rate Blood Pressure 188/74 O2 Sat by Pulse 98 Oximetry Chest Pain MDM - MDM Was pt. sent in by a medical professional or institution ([facility], SAW FILER, urgent care, hospital, or long term...) When possible be specific @ -No Did you speak to anyone other than the patient for history (EMS, parent, family, police, friend...)? What history was obtained from this source @ -No Did you review nursing and triage notes (agree or disagree)? Why? @ -I reviewed and agree with nursing and triage notes Were old charts reviewed (outside hosp., previous admission, EMS record, old EKG, old radiological studies, urgent care reports/EKG's, long term records)? Report findings @ -No old charts were reviewed Differential Diagnosis (chest pain, altered mental status, abdominal pain women, abdominal pain men, vaginal bleeding, weakness, fever, dyspnea, syncope, headache, dizziness, GI bleed, back pain, seizure, CVA, palpatations, mental health, musculoskeletal)? @ -Differential Chest Pain: Stable Angina, Unstable Angina, STEMI, NSTEMI Aortic Dissection, Pneumothorax, Musculoskeletal, Esophageal Spasm GERD, Cholecystitis, Pancreatitis, Zoster, this is not meant to be an all-inclusive list. EKG interpreted by me (3pts min.). @ -As above X-rays interpreted by me (1pt min.). @ -Chest x-ray shows COPD changes no other acute process CT interpreted by me (1pt min.). @ -CT angio for PE negative for PE, stable nodules, calcifications noted U/S interpreted by me (1pt. min.). @ -None done What testing was considered but not performed or refused? (CT, X-rays, U/S, labs)? Why? @ -None What meds were considered but not given or refused? Why? @ -None Did you discuss the management of the patient with other professionals (professionals i.e. , PA, SAW FILER, lab, RT, psych nurse, criminal justice social worker, courier driver, teacher, armed custom protection officer, pillowcase cleaner)? Give summary @ -No Was smoking cessation discussed for >3mins.? @ -No Was critical care preformed (if so, how long)? @ -No Were there social determinants of health that impacted care today? How? (Homelessness, low income, unemployed, alcoholism, drug addiction, transportation, low edu. Level, literacy, decrease access to med. care, shelter, rehab)? @ -No Was there de-escalation of care discussed even if they declined (Discuss DNR or withdrawal of care, Hospice)? DNR status @ -No What co-morbidities impacted this encounter? (DM, HTN, Smoking, COPD, CAD, Cancer, CVA, ARF, Chemo, Hep., AIDS, mental health diagnosis, sleep apnea, morbid obesity)? @ -Hypertension Was patient admitted / discharged? Hospital course, mention meds given and route, prescriptions, significant lab abnormalities, going to OR and other pertinent info. @ -Discharge patient presented for chest wall pain reproducible chest pain workup including labs EKG chest x-ray CT are negative patient was offered adm ission she states she accepted go home at this time she is to return for any worsening changes family updated on results. Undiagnosed new problem with uncertain prognosis? @ -No Drug Therapy requiring intensive monitoring for toxicity (Heparin, Nitro, Insulin, Cardizem)? @ -No Were any procedures done? @ -No Diagnosis/symptom? @ -Atypical chest pain, chest wall pain Acute, or Chronic, or Acute on Chronic? @ -Acute Uncomplicated (without systemic symptoms) or Complicated (systemic symptoms)? @ -Complicated Side effects of treatment? @ -No Exacerbation, Progression, or Severe Exacerbation? @ -No Poses a threat to life or bodily function? How? (Chest pain, [place], [place], pneumonia, PE, COPD, DKA, ARF, appy, cholecystitis, CVA, Diverticulitis, Homicidal, Suicidal, threat to staff... and all critical care pts) @ -No Disposition Clinical Impression: Chest pain, atypical, Chest wall pain Disposition: HOME SELF-CARE Condition: Stable Instructions (If sedation given, give patient instructions): Chest Pain (ED) Additional Instructions: Please return to the Emergency Department if symptoms worsen or any other concerns. Is patient prescribed a controlled substance at d/c from ED?: No Referrals: Zachariah Montgomery MD [Primary Care Provider] - 1-2 days Time of Disposition: 14:34
--- NOTE | 2024-10-22 11:24 | XR ---
EXAMINATION TYPE: XR chest 2V DATE OF EXAM: 10/22/2024 10:43 AM COMPARISON: Chest radiographs from 03/21/2023 CLINICAL INDICATION: Female, 84 years old with history of Chest Pain; [facility] TECHNIQUE: XR chest 2V Frontal and lateral views of the chest. FINDINGS: Lungs/Pleura: There is flattening of the diaphragm with increased lucency of the lungs. No evidence o f pneumothorax, pleural effusion or focal consolidation. Pulmonary vascularity: Unremarkable. Heart/mediastinum: Cardiomediastinal silhouette is unremarkable. Two lead cardiac conduction device o verlying the left hemithorax with lead tips projecting over the right ventricle and right atrium. Musculoskeletal: No acute osseous pathology. IMPRESSION: 1. No acute cardiopulmonary disease process. 2. COPD changes. [facility], , 10/22/2024 11:21 AM
[2024-10-22 12:21] VITALS: RESP 20
[2024-10-22 12:29] LABS: Basophils % (A) 1 %; Eosinophils # (A) 0.2 k/uL (0-0.7); Eosinophils % (A) 2 %; HCT 44.5 % (34.0-46.0); HGB 14.4 gm/dL (11.4-16.0); Lymphocytes # (A) 1.5 k/uL (1.0-4.8); Lymphocytes % (A) 20 %; MCH 29.6 pg (25.0-35.0); MCHC 32.4 g/dL (31.0-37.0); MCV 91.3 fL (80.0-100.0); Mean Platelet Volume 9.1; Monocytes # (A) 0.4 k/uL (0-1.0); Monocytes % (A) 6 %; Neutrophils # (A) 5.3 k/uL (1.3-7.7); Neutrophils % (A) 70 %; Platelet Count 218 k/uL (150-450); RBC 4.87 m/uL (3.80-5.40); RDW 13.8 % (11.5-15.5); WBC 7.6 k/uL (3.8-10.6)
[2024-10-22 12:41] LABS: ALT 22 U/L (4-34); AST 29 U/L (14-36); African American GFR (CKD) 55 (>60 ml/min/1.73 sqM); Albumin 4.3 g/dL (3.5-5.0); Alkaline Phosphatase 95 U/L (38-126); Anion Gap 5 mmol/L; Blood Urea Nitrogen 40 mg/dL (7-17); Calcium 9.7 mg/dL (8.4-10.2); Carbon Dioxide 31 mmol/L (22-30); Chloride 104 mmol/L (98-107); Glucose 111 mg/dL (74-99); Magnesium 2.4 mg/dL (1.6-2.3); Non-African American GFR(CKD) 48 (>60 ml/min/1.73 sqM); Potassium 4.4 mmol/L (3.5-5.1); Sodium 140 mmol/L (137-145); Total Bilirubin 0.8 mg/dL (0.2-1.3); Total Protein 6.6 g/dL (6.3-8.2)
[2024-10-22 12:46] LABS: Partial Thromboplastin Time 22.4 sec (22.0-30.0); Prothrombin Time 10.7 sec (10.0-12.5)
[2024-10-22 12:49] LABS: NT-Pro-B-Type Natriuretic Pept 163 pg/mL
[2024-10-22] MEDS: diphenhydrAMINE 50 MG/ML 1 ML VIAL IVP STA (13:16)
[2024-10-22] MEDS: FAMOTIDINE 20 MG/2 ML VIAL IV STA (13:16)
[2024-10-22] MEDS: methylPREDNISolone SOD SUCCI 125 MG/2 ML VIAL IV STA (13:16)
[2024-10-22 13:24] VITALS: PULSE 58
--- NOTE | 2024-10-22 13:58 | CT ---
EXAMINATION TYPE: CT chest angio for PE CT DLP: 298.2 mGycm, Automated exposure control for dose reduction was used. DATE OF EXAM: 10/22/2024 1:44 PM COMPARISON: CT chest 07/10/2024, 06/08/2018, CTA chest 05/06/2016 CLINICAL INDICATION:Female, 84 years old with history of pain; left side chest pain and elevated d-di jess TECHNIQUE/CONTRAST: CTA scan of the thorax is performed with IV Contrast, patient injected with 80ml mL of Isovue 370, pu lmonary embolism protocol. MIP images are created and reviewed. FINDINGS: Pulmonary Artery: There is no evidence for a filling defect within the pulmonary vasculature to sugge st acute pulmonary embolism. The pulmonary artery is dilated measuring up to 3.4 cm. Lungs/Pleura: No evidence of focal consolidation, pleural effusion or pneumothorax. Mild centrilobula r emphysematous changes. Stable nodular opacity within the periphery of the left lower lobe measuring up to 7 mm with surrounding groundglass and adjacent pleural thickening (series 406, image 89). Stab le groundglass pleural-based right middle lobe nodule opacity measuring 6 mm (series 406, image 70). Airway: Large airways are patent. Heart: Heart is within normal limits for size. No pericardial effusion. Moderate coronary arterial ca lcifications. Dense mitral annulus calcifications. Small aortic valvular calcifications. Vasculature: No evidence of aortic aneurysm. Left chest wall cardiac pacemaker device with leads with in the right atrium and right ventricle. Atherosclerotic calcifications are present throughout the ao rta and its branches. Mediastinum: No evidence of adenopathy. Musculoskeletal: No acute osseous abnormalities. Rgyg-du-[id number] multilevel degenerative disc diseas e. Benign vertebral hemangioma involving the T11 vertebral body. Soft Tissues: Unremarkable. Lower neck: Macrocalcifications within the left thyroid lobe.. Upper Abdomen: Gallbladder is surgical absent. 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 Sm all hiatal hernia. Postsurgical changes of anterior abdominal wall with mesh anchors. IMPRESSION: 1. No evidence of pulmonary embolism. 2. Few stable nodular opacities from prior CT. 3. Mildly dilated pulmonary artery which can be seen in the setting of pulmonary arterial hypertensio n. [facility], , 10/22/2024 1:56 PM
[2024-10-22 14:47] VITALS: BP 188/74
== END 2024-10-22 14:52 | disposition home or self-care (01) ==
LOC: EC 10:06
DX: R07.89 Other chest pain (principal); I10 Essential (primary) hypertension; Z88.0 Allergy status to penicillin; Z88.1 Allergy status to other antibiotic agents; Z88.2 Allergy status to sulfonamides; Z88.6 Allergy status to analgesic agent; Z88.8 Allergy status to other drugs, medicaments and biological substances; Z91.041 Radiographic dye allergy status; Z87.891 Personal history of nicotine dependence; Z95.0 Presence of cardiac pacemaker; Z79.899 Other long term (current) drug therapy
CPT/HCPCS: 36415; 93005; 85379; 83880; 80053; 83735; 84484; 85025; 85610; 85730; 71046; 71275; 99285; 96374; 96375; J1200; J3490; Q9967; J2919

== ENCOUNTER → 2025-02-17 | Outpatient (CLI) | payer MEDICARE ==
--- NOTE | 2025-02-17 12:49 | CT ---
EXAMINATION TYPE: CT abdomen wo/w con CT DLP: 2612.60 mGycm, Automated exposure control for dose reduction was used. 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 TECHNIQUE: Standard CT of the abdomen before and after the uneventful administration of 80 mL of Is ovue-300 intravenously. Oral contrast was administered. Coronal and sagittal reformats were performed . FINDINGS: LOWER CHEST: Please see dedicated CT chest for findings ABDOMEN LIVER: Unremarkable GALLBLADDER AND BILE DUCTS: Gallbladder surgically absent. No biliary duct dilatation. PANCREAS: Unremarkable. SPLEEN: Unremarkable. ADRENAL GLANDS: Unremarkable. KIDNEYS AND URETERS: No evidence of hydronephrosis. Punctate nonobstructive left renal calculus redem onstrated. The visualized ureters are unremarkable. Fat-containing lesion within the left kidney cor michele measuring 7 mm again suggested. Slightly increased size of exophytic right renal lower pole 2.6 c m lesion, previously 2.4 cm. This demonstrates a focal region of hyperattenuation on noncontrast imag ing which appears to slightly increase in attenuation on postcontrast imaging. (Series 5, image 41). There is a fluid attenuation component identified. Additional bilateral small scattered stable cysts which are favored to represent proteinaceous/hemorrhagic cysts identified. Additional subcentimeter s imple appearing cysts. Contrast is demonstrated within both collecting systems on the delayed phase. STOMACH AND BOWEL: Postsurgical changes of the stomach with small hiatal hernia. Enteric contrast is reaching the ascending colon. No focal wall thickening or surrounding inflammatory changes identified . Few scattered colonic diverticula of the descending colon. No evidence of bowel obstruction. PERITONEUM/RETROPERITONEUM: No evidence of pneumoperitoneum or free fluid. VASCULATURE: Moderate atherosclerotic calcifications are present throughout the abdominal aorta and i ts branches. No evidence of aortic aneurysm. MUSCULOSKELETAL: No acute osseous abnormalities. Grade 1 anterolisthesis of L4 on L5. Mild retrolisth esis of T12 on L1 and L1 on L2 LYMPH NODES: No evidence for lymphadenopathy. SOFT TISSUE/ABDOMINAL WALL: Anterior abdominal wall surgical mesh anchors. IMPRESSION: Slightly increased size of right renal lower pole exophytic lesion with hyperdense appearance on nonc ontrast imaging however there is increased attenuation values on postcontrast imaging. Raises concern for possible renal cell carcinoma versus other etiologies such as a proteinaceous/hemorrhagic cyst. Further evaluation with MR abdomen renal mass protocol is again recommended. Additional stable bilate ral hyperdense renal lesions which are consistent with proteinaceous/hemorrhagic cysts. [facility], , 02/17/2025 12:47 PM
== END | disposition home or self-care (01) ==
LOC: RADCTMAIN 10:33
PROVIDERS: ATTEND Urology
DX: D41.01 Neoplasm of uncertain behavior of right kidney (principal); N28.89 Other specified disorders of kidney and ureter
CPT/HCPCS: 74170

== ENCOUNTER → 2025-02-17 | Outpatient (CLI) | payer MEDICARE ==
[2025-02-17 11:14] LABS: African American GFR (CKD) 55 (>60 ml/min/1.73 sqM); Blood Urea Nitrogen 38 mg/dL (7-17); Non-African American GFR(CKD) 48 (>60 ml/min/1.73 sqM)
--- NOTE | 2025-02-17 12:39 | CT ---
EXAMINATION TYPE: CT chest w con CT DLP: 2612.60 mGycm, Automated exposure control for dose reduction was used. DATE OF EXAM: 02/17/2025 12:23 PM COMPARISON: CT chest 10/22/2024, CT chest 07/10/2024 CLINICAL INDICATION:Female, 84 years old with history of R91.1 LUNG NODULE; PHH, lung nodule and Rt k idney mass. TECHNIQUE: Multiple axial images were obtained through the chest following the administration of 100 cc of Isovue 300. . Coronal and sagittal reformats reviewed. FINDINGS: LUNGS/ PLEURA: No evidence of focal consolidation, pleural effusion or pneumothorax. Mild centrilobul ar abdomen changes. Stable nodular opacity within the periphery of the left lower lobe measuring up t o 7 mm with surrounding groundglass opacification and adjacent pleural thickening (series 5, image 38 ). Stable subpleural right middle lobe groundglass nodule measuring up to 6 mm (series 5, image 26). No new or enlarging pulmonary nodules. Airway: Large airways are patent. Heart: Heart is within normal limits for size. No pericardial effusion. Moderate coronary arterial ca lcifications. Dense mitral annulus calcifications. Small aortic valvular calcifications. Vasculature: No evidence of aortic aneurysm. Left chest wall cardiac pacemaker device with leads with in the right atrium and right ventricle. Atherosclerotic calcifications are present throughout the ao rta and its branches. Dilated main pulmonary artery measuring 3.2 cm suggesting pulmonary arterial hy pertension. Mediastinum: No evidence of adenopathy. Musculoskeletal: No acute osseous abnormalities. Akax-ln-xnutfhzt multilevel degenerative disc diseas e. Benign vertebral hemangioma involving the T11 vertebral body. SOFT TISSUES/LYMPH NODES: 1.6 cm hypodense left thyroid nodule redemonstrated with macrocalcification s. LOWER NECK: No significant findings. UPPER ABDOMEN: Please see CT abdomen from the same date for findings. IMPRESSION: 1. No acute thoracic process. 2. Few stable pulmonary nodular opacities dating back to 07/10/2024 CT. No new or enlarging pulmonary n odules. Recommend follow-up CT chest in one year to assess for stability. [facility], , 02/17/2025 12:37 PM
== END | disposition home or self-care (01) ==
LOC: RADCTMAIN 10:31
PROVIDERS: ATTEND Internal Medicine
DX: R91.8 Other nonspecific abnormal finding of lung field (principal)
CPT/HCPCS: 82565; 84520; 71260; 36415; Q9967